=== PATIENT | male | born 1960 | race Caucasian/White ===

== ENCOUNTER 2020-02-23 17:35 | Observation (INO) ==
[2020-02-23] MEDS ORDERED: SODIUM CHLORIDE 0.9% 500 ML IV SCH (18:00)
[2020-02-23] MEDS ORDERED: NITROGLYCERIN SL 0.4 MG/TAB TAB SL STA (18:00)
[2020-02-23] MEDS ORDERED: ASPIRIN CHEW 324 MG PO STA (18:00)
--- NOTE | 2020-02-23 18:08 | Emergency Department Note ---
History of Present Illness General Chief complaint: Chest Pain Stated complaint: chest pain Time Seen by Provider: 02/23/20 17:45 Source: patient Limitations: no limitations History of Present Illness Provider complaint: Chest pain Onset (ago): hour(s) Location: chest and left Radiation: extremity (Left shoulder) Severity: mild Maximum Pain Intensity: 3 Current Pain Intensity: 3 Quality: + aching and + dull Relieved By: + none Exacerbated By: + none Associated symptoms: no cough, no diaphoresis, no fever/chills, no nausea/vomiting and no shortness of breath This is a 59-year-old male with a history of atrial fibrillation presenting with chest discomfort. The patient states the pain started at 3 PM today while he was operating. 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 He describes it as a dull ache on the left side of his chest which radiates into his left shoulder. Occasionally will radiate into the right side of his chest. He denies any associated shortness of breath or diaphoresis. He does state that he feels a little run down and tired. He has never had any similar chest discomfort in the past. He never smoked. He does have a family history of heart disease. His father had a heart attack around his age. His father also has anticardiolipin antibody and had numerous PEs and DVTs since his 20s. The patient has never been tested or had a hypercoagulable work-up. He denies any immobilization or leg swelling or pain. He denies any cough or cold symptoms, abdominal pain, vomiting or diarrhea. He denies any known exposure COVID-19. He was previously treated for high cholesterol but his process project engineer stopped his statin because of myalgias a month ago. They did recheck his cholesterol which was within normal limits. The patient did have a stress echocardiogram approximately 2 years ago. He had abdominal issues at that time and had a CT with IV contrast which demonstrated potential pulmonary hypertension and so the stress echocardiogram was performed. It was found that he did not have pulmonary hypertension at that time and his stress echocardiogram was negative for ischemia. Home Medications Home Medications Medication Instructions Recorded Confirmed Type aspirin 81 mg PO DAILY 06/17/18 02/23/20 History cetirizine 10 mg PO DAILY PRN 06/17/18 02/23/20 History diltiazem HCl 180 mg PO DAILY 06/17/18 02/23/20 History flecainide 50 mg PO DAILY 06/17/18 02/23/20 History Allergies Allergy/AdvReac Type Severity Reaction Status Date / Time meperidine Allergy HIVES Verified 02/23/20 18:42 Past Med/Surg History Medical History A-fib Surgical History Hx of appendectomy Hx of carpal tunnel repair Family History Other Cancer Diabetes Gallbladder disease Heart disease Hypertension Lung cancer Lung disease Social History Smoking Status: Never smoker Preferred Language: Serbian marital status: Current Living Situation: Family current occupational status: employed Feels Safe at Home: Yes Review of Systems See HPI for pertinent positives & negatives. and A total of 10 systems reviewed and were otherwise negative Physical Exam Vital Signs Vital Signs - 24 hr 02/23/20 17:41 02/23/20 18:25 02/23/20 18:30 Temperature 36.6 C Temperature Source Oral Pulse Rate 66 58 L 58 L Pulse Rate from SpO2 Sensor Pulse Rhythm Regular Pulse Strength Normal Respiratory Rate 18 18 18 Respiratory Effort / Characteristics Non-Labored Spontaneous Respiratory Depth Normal Respiratory Pattern Regular Blood Pressure 148/91 H 154/91 H 156/100 H Blood Pressure Mean 110 102 114 Blood Pressure Position Sitting Pulse Oximetry 98 Oxygen Delivery Method Room Air Sepsis Recent Fever Within 48 Hours No Sepsis New/Unexplained Change in Mental Status No Sepsis Action Taken by Nursing No Action Required 02/23/20 18:35 02/23/20 18:40 02/23/20 18:45 Temperature Temperature Source Pulse Rate 58 L 64 51 L Pulse Rate from SpO2 Sensor 64 51 L Pulse Rhythm Pulse Strength Respiratory Rate 18 18 18 Respiratory Effort / Characteristics Respiratory Depth Respiratory Pattern Blood Pressure 158/93 H 147/85 H 147/93 H Blood Pressure Mean 101 102 105 Blood Pressure Position Pulse Oximetry 95 96 Oxygen Delivery Method Sepsis Recent Fever Within 48 Hours Sepsis New/Unexplained Change in Mental Status Sepsis Action Taken by Nursing 02/23/20 18:50 02/23/20 18:52 02/23/20 18:55 Temperature Temperature Source Pulse Rate 56 L 49 L Pulse Rate from SpO2 Sensor 56 L 49 L Pulse Rhythm Pulse Strength Respiratory Rate 18 18 Respiratory Effort / Characteristics Respiratory Depth Respiratory Pattern Blood Pressure 151/90 H 150/89 H Blood Pressure Mean 111 114 Blood Pressure Position Pulse Oximetry 96 97 96 Oxygen Delivery Method Room Air Sepsis Recent Fever Within 48 Hours Sepsis New/Unexplained Change in Mental Status Sepsis Action Taken by Nursing 02/23/20 19:00 02/23/20 19:05 02/23/20 19:10 Temperature Temperature Source Pulse Rate 50 L 49 L 47 L Pulse Rate from SpO2 Sensor 50 L 50 L 47 L Pulse Rhythm Pulse Strength Respiratory Rate 18 18 18 Respiratory Effort / Characteristics Respiratory Depth Respiratory Pattern Blood Pressure 149/91 H 149/88 H 150/88 H Blood Pressure Mean 104 103 104 Blood Pressure Position Pulse Oximetry 96 96 96 Oxygen Delivery Method Sepsis Recent Fever Within 48 Hours Sepsis New/Unexplained Change in Mental Status Sepsis Action Taken by Nursing 02/23/20 19:15 02/23/20 19:20 02/23/20 19:35 Temperature Temperature Source Pulse Rate 52 L 54 L 46 L Pulse Rate from SpO2 Sensor 54 L 52 L 47 L Pulse Rhythm Pulse Strength Respiratory Rate 18 18 18 Respiratory Effort / Characteristics Respiratory Depth Respiratory Pattern Blood Pressure 142/88 H 170/93 H 168/97 H Blood Pressure Mean 112 108 115 Blood Pressure Position Pulse Oximetry 97 97 98 Oxygen Delivery Method Sepsis Recent Fever Within 48 Hours Sepsis New/Unexplained Change in Mental Status Sepsis Action Taken by Nursing 02/23/20 19:40 Temperature Temperature Source Pulse Rate 45 L Pulse Rate from SpO2 Sensor 47 L Pulse Rhythm Pulse Strength Respiratory Rate 18 Respiratory Effort / Characteristics Respiratory Depth Respiratory Pattern Blood Pressure 178/101 H Blood Pressure Mean 125 Blood Pressure Position Pulse Oximetry 97 Oxygen Delivery Method Sepsis Recent Fever Within 48 Hours Sepsis New/Unexplained Change in Mental Status Sepsis Action Taken by Nursing Constitutional: Vital signs reviewed. Eyes: Pupils are equal round reactive to light. Conjunctiva are noninjected. ENT: Pharynx is clear without erythema or exudate. Mucous membranes are moist. Neck supple without meningeal signs. Respiratory: Clear to auscultation bilaterally. Breath sounds are equal bilat erally. Cardiovascular: Regular rate and rhythm. No rubs or gallops. GI: Soft, nondistended and nontender. Bowel sounds are present. Musculoskeletal: No peripheral edema. No lower extremity tenderness. Integumentary: No cyanosis. or jaundice. Neurological: The patient is awake and alert. No focal deficits. Psychiatric: Normal affect. Not anxious appearing. Course Administered Medications Discontinued Medications Aspirin (Aspirin Chew 324 Mg) 324 mg PO NOW STA Stop: 02/23/20 18:01 Last Admin: 02/23/20 18:34 Dose: 324 mg Documented by: [id number] Sodium Chloride (Nss) 500 mls @ 999 mls/hr IV .Q31M NORTH Stop: 02/23/20 18:30 Last Infusion: 02/23/20 20:09 Dose: 0 mls/hr Documented by: [id number] Admin: 02/23/20 18:34 Dose: 999 mls/hr Documented by: [id number] Nitroglycerin (Nitroglycerin Sl 0.4 Mg/Tab Tab) 0.4 mg SL NOW STA Stop: 02/23/20 18:01 Last Admin: 02/23/20 18:34 Dose: 0.4 mg Documented by: [id number] Medical Decision Making Differential Diagnosis Unstable angina, MS, pleurisy, pneumonia, pulmonary embolism, GERD Medical Records Attestation: I reviewed the patient's medical records. I did perform a limited focused review of portions of the patient's old chart on the electronic medical record. The patient has had no recent pertinent visits to this hospital. He was seen here for abdominal pain in 2018. Home Medications Current Medication List: was personally reviewed by me Laboratory Data Attestation: I reviewed the patient's lab results. Result diagrams: 02/23/20 18:31 02/23/20 18:31 Lab Results 02/23/20 02/23/20 02/23/20 Range/Units 18:31 18:31 18:31 WBC 11.27 H (4.8-10.8) K/uL RBC 4.88 (4.7-6.1) M/uL Hgb 15.6 (14.0-18.0) g/dL Hct 43.7 (42-52) % MCV 89.5 (80-100) fL MCH 32.0 (25-34) pg MCHC 35.7 (32-36) g/dL RDW Std Deviation 42.3 (36.4-46.3) fL RDW Coeff of Nichole 12.9 (11.5-14.5) % Plt Count 258 (130-400) K/uL MPV 10.0 (7.4-10.4) fL Immature Gran % (Auto) 0.1 % Neut % (Auto) 65.3 % Lymph % (Auto) 26.9 % [place] % (Auto) 6.2 % Eos % (Auto) 1.4 % Baso % (Auto) 0.1 % Neut # (Auto) 7.36 H (1.4-6.5) K/uL Lymph # (Auto) 3.03 (1.2-3.4) K/uL [place] # (Auto) 0.70 H (0.11-0.59) K/uL Eos # (Auto) 0.16 (0-0.5) K/uL Baso # (Auto) 0.01 (0-0.2) K/uL Immature Gran # (Auto) 0.01 (0.00-0.02) K/uL PT 10.9 (9.0-12.0) Seconds INR 1.0 (0.9-1.1) APTT 25.6 (21.0-31.0) Seconds PTT Ratio 0.9 D-Dimer 490 (0-500) ug/L FEU Sodium 138 (136-145) mmol/L Potassium 3.7 (3.5-5.1) mmol/L Chloride 106 (98-107) mmol/L Carbon Dioxide 27 (21-32) mmol/L Anion Gap 6.0 (3-11) BUN 17 (7-18) mg/dl Creatinine 1.18 (0.6-1.4) mg/dl Est Cr Clr Drug Dosing 98.3 ml/min Est GFR ( Amer) 78.4 Est GFR (Non-Af Amer) 67.6 BUN/Creatinine Ratio 14.3 (10-20) Glucose 97 (70-99) mg/dl Calcium 8.9 (8.5-10.1) mg/dl Total Bilirubin 0.4 (0.2-1) mg/dl AST 16 (15-37) U/L ALT 28 (12-78) U/L Alkaline Phosphatase 60 (45-117) U/L Troponin I < 0.015 (0-0.045) ng/ml Total Protein 7.6 (6.4-8.2) gm/dl Albumin 3.8 (3.4-5.0) gm/dl Globulin 3.8 (2.5-4.0) gm/dl Albumin/Globulin Ratio 1.0 (0.9-2) Lipase 117 (73-393) U/L Imaging Data Radiologist's Impression: XR chest 1V portable CLINICAL HISTORY: Atypical chest pain COMPARISON STUDY: 06/17/2018 FINDINGS: The cardiac and mediastinal contours are normal. There is no evidence of focal pulmonary consolidation. There is no evidence of failure. No pleural effusions are visualized.[ IMPRESSION: No active disease in the chest. ACT 112: Negative or not required by law. Electronically signed by: Aj Odom M.D. 02/23/2020 6:11 PM Dictated: 02/23/201810 Transcribed: 02/23/201810 ECG Data Attestation: I personally reviewed and interpreted this ECG as follows: Indication: + chest pain Rate (beats per minute): 62 Rhythm: + normal sinus ECG Intervals/blocks: + Normal QRS ECG ST segments: no ST elevation ECG Findings: no PVCs Comparison ECG Date: from (June 17, 2018) Change: no significant change Blood Pressure Blood Pressure Findings: Elevated blood pressure Blood Pressure Disposition: Referred to patients primary care provider [facility] Narrative I did evaluate the patient as noted above. IV access was established. He was given normal saline IV. I did place an order for continuous cardiac monitoring. The monitor showed normal sinus rhythm at a rate of 60 but during his ED stay he became progressively more bradycardic with a heart rate down to the high 40s. I did order and personally review the patient's 12-lead EKG as described above. He has no acute ischemic changes. I did treat him with aspirin p.o. He was also given nitroglycerin sublingually. I did order and personally reviewed the images of the patient's chest x-ray as described above. Chest x-ray is unremarkable. I did order and review the patient's blood work as noted in the electronic medical record. Initial troponin is negative. He has mild le ukocytosis which is of unclear clinical significance. He is not anemic. Electrolytes are unremarkable. I did reassess patient. He is now bradycardic but still hypertensive. He no longer has any chest pain. He does state that it comes and goes but he is currently not having any. I did review his test results with him as well as his . He has a heart score of 4 and so is not a good candidate for the heart pathway. I therefore recommended hospitalization for repeat cardiac biomarkers and possible stress test in the morning. I did discuss case with the hospitalist and oil field caser. Impression & Plan Chest pain, Bradycardia Discharge Plan Visit Data Chief Complaint: Chest Pain Stated Complaint: chest pain ED Provider: Nicholas Escalante Discharge Problem: Chest pain, Bradycardia Patient Disposition: Being Evaluated by Hospitalist Discharge Instructions Interventions: ED Discharge Assessment Last Done: 02/23/20 20:39 Discharge Problem: Chest pain Qualifiers: Chest pain type: unspecified Qualified Code(s): R07.9 - Chest pain, unspecified
--- NOTE | 2020-02-23 18:12 | XRay Report ---
XR chest 1V portable CLINICAL HISTORY: Atypical chest pain COMPARISON STUDY: 06/17/2018 FINDINGS: The cardiac and mediastinal contours are normal. There is no evidence of focal pulmonary co nsolidation. There is no evidence of failure. No pleural effusions are visualized.[ IMPRESSION: No active disease in the chest. ACT 112: Negative or not required by law. Electronically signed by: Aj Odom M.D. 02/23/2020 6:11 PM
[2020-02-23 18:43] LABS: Basophils # (auto) 0.01 K/uL (0-0.2); Basophils % (auto) 0.1 %; Eosinophils # (auto) 0.16 K/uL (0-0.5); Eosinophils % (auto) 1.4 %; Hematocrit (blood only) 43.7 % (42-52); Hemoglobin 15.6 g/dL (14.0-18.0); Immature Granulocytes # (auto) 0.01 K/uL (0.00-0.02); Immature Granulocytes % (auto) 0.1 %; Lymphocytes # (auto) 3.03 K/uL (1.2-3.4); Lymphocytes % (auto) 26.9 %; Mean Corpuscular Hgb Conc 35.7 g/dL (32-36); Mean Corpuscular Volume 89.5 fL (80-100); Monocytes % (auto) 6.2 %; Neutrophils # (auto) 7.36 K/uL (1.4-6.5); Neutrophils % (auto) 65.3 %; Platelet Count 258 K/uL (130-400); RDW Coefficient of Variation 12.9 % (11.5-14.5); RDW Standard Deviation 42.3 fL (36.4-46.3); Red Blood Count 4.88 M/uL (4.7-6.1); White Blood Count 11.27 K/uL (4.8-10.8)
[2020-02-23 18:56] LABS: D Dimer 490 ug/L FEU (0-500); Partial Thromboplastin Ratio 0.9; Partial Thromboplastin Time 25.6 Seconds (21.0-31.0); Prothrombin Time 10.9 Seconds (9.0-12.0)
[2020-02-23 18:59] LABS: Alanine Aminotransferase 28 U/L (12-78); Albumin Level 3.8 gm/dl (3.4-5.0); Aspartate Aminotransferase 16 U/L (15-37); BUN Creatinine Ratio 14.3 (10-20); Blood Urea Nitrogen 17 mg/dl (7-18); Calcium 8.9 mg/dl (8.5-10.1); Carbon Dioxide 27 mmol/L (21-32); Chloride 106 mmol/L (98-107); Creatinine Clr Calc Pharmacy 98.3 ml/min; Est GFR (African American) 78.4; Est GFR (Non-African American) 67.6; Glucose 97 mg/dl (70-99); Lipase 117 U/L (73-393); Potassium 3.7 mmol/L (3.5-5.1); Sodium 138 mmol/L (136-145)
[2020-02-23 19:04] LABS: Alkaline Phosphatase 60 U/L (45-117); Bilirubin,Total 0.4 mg/dl (0.2-1); Globulin 3.8 gm/dl (2.5-4.0); Total Protein 7.6 gm/dl (6.4-8.2); Troponin I < 0.015 ng/ml (0-0.045)
[2020-02-23] MEDS ORDERED: CETIRIZINE HCL 10 MG TABLET PO PRN (21:05)
[2020-02-23] MEDS ORDERED: ACETAMINOPHEN 325 MG TAB PO PRN (21:05)
[2020-02-23] MEDS ORDERED: NITROGLYCERIN SL 0.4 MG/TAB TAB SL PRN (21:05)
--- NOTE | 2020-02-23 23:07 | History and Physical Report ---
DATE OF ADMISSION: 02/23/2020 CHIEF COMPLAINT: Chest pain. 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 when he noticed chest pain in the left side of his chest, dull aching pain, 6/10 in severity, radiating to the left shoulder and he was also feeling fatigued. He was finding it difficult to get up from the chair and move. This fatigueness is going on for the last 2-3 months, but he did not have any chest pain, this is the first time he had chest pain. In the ER, he was given nitroglycerin and initially pain seemed to improve, but seemed to be coming back again. No shortness of breath, no sweating, no nausea, no dizziness. Has tinnitus in the right ear for the last 3 years. Follows with ENT. No obvious etiology was found. No headache, no blurred visions, no earache, no runny nose, no sore throat. No sense of loss of smell or taste. No exposure to COVID. No nausea, no vomiting, no abdominal pain. Normal bowel and bladder movements. No blood in stools or black stools. He says that he noticed lately some swelling in his right ankle region. No rash seen. He also says lately climbing steps is making him short of breath and attributes it to his overall not being fit. Also feels that he is feeling foggy for the last few months. Currently, he is hemodynamically stable. Initial troponin and EKGs are okay. Could not tolerate atorvastatin with myalgias but recent lipid profile was okay. ALLERGIES: ATORVASTATIN, CAUSED MUSCLE PAIN; MEPERIDINE, UNRELATED. PAST MEDICAL HISTORY: As mentioned above. PAST SURGICAL HISTORY: Colonoscopy, appendectomy, wrist endoscopic surgery, release transverse carpal ligament. MEDICATIONS: On flecainide 50 mg p.o. b.i.d., diltiazem 180 mg p.o. daily, enteric aspirin 81 mg p.o. daily, Zyrtec 10 mg p.o. daily p.r.n. FAMILY HISTORY: Significant for father had anticardiolipin antibody diagnosed in his 50s, but he had numerous PEs and DVTs since his 20s, has been on lifelong Coumadin. SOCIAL HISTORY: . No smoking. Alcohol rare. No drug use. REVIEW OF SYSTEMS: As per HPI. Rest of the review of symptoms negative. PHYSICAL EXAMINATION: GENERAL: The patient is alert and oriented, not in acute distress. VITAL SIGNS: Temperature 36.6, pulse in the 50s and 40s, blood pressure 178/101, oxygen 97% on room air. HEENT: No pallor, no icterus. Pupils equal, round, reactive to light. NECK: No JVD, no neck masses. Supple. CARDIOVASCULAR: S1, S2 heard, regular rate and rhythm, no murmur, no gallop. RESPIRATORY SYSTEM: Normal AP diameter. No accessory muscle use. No wheezing, no crackles. ABDOMEN: Soft, bowel sounds present, nontender. No distention. CENTRAL NERVOUS SYSTEM: Alert and oriented. Speech clear. Extraocular muscles intact. Moves extremities. EXTREMITIES: No edema, no erythema seen. LABORATORY DATA: WBC 11.2, hemoglobin 15.6, hematocrit 43.7, platelets 258. PT 10.9, INR 1, APTT 25.6. D-dimer 490. Sodium 138, potassium 3.7, chloride 106, bicarbonate 27, BUN 17, creatinine 1.1, serum glucose 97, calcium 8.9, total bilirubin 0.4, AST 16, ALT 28, alkaline phosphatase 60, troponin I less than 0.015. Lipase 117. IMAGING DATA: Chest x-ray, no acute findings. EKG: Normal sinus rhythm with a rate of 62, no acute ST changes seen, no significant change was found. ASSESSMENT AND PLAN: This is a 59-year-old male who presents with chest pain. 1. Chest pain, rule out acute coronary syndrome. Risk factor of age, atrial fibrillation, obesity, sleep apnea. Initial workup is negative. We will follow serial enzymes, repeat EKG in the a.m., echocardiogram. Will keep n.p.o. after midnight and consult cardiology for further recommendation. We will check fasting lipid profile. 2. History of atrial fibrillation, rate controlled with flecainide and diltiazem, on aspirin. 3. Obstructive sleep apnea, on CPAP at bedtime. 4. Grade 2 diastolic dysfunction with normal LV systolic function on the echo done in 2018. We will follow the repeat echo. 5. Hyperlipidemia, not on statin because could not tolerate atorvastatin. We will follow the lipid profile. 6. Ongoing fatigue, fogginess. Will check TSH levels. Somewhat bradycardic in the ER, possible cause? We will also monitor the oxygen saturations while on CPAP and monitor in the tele floor. 7. Deep vein thrombosis prophylaxis, sequential compression devices for now. 8. Disposition: Observe in tele floor. Level 1 full code. Expect to discharge home and follow with the family doctor and cardiology. ANDREI
[2020-02-24 06:20] LABS: Basophils # (auto) 0.03 K/uL (0-0.2); Basophils % (auto) 0.3 %; Eosinophils # (auto) 0.17 K/uL (0-0.5); Eosinophils % (auto) 1.9 %; Hematocrit (blood only) 43.2 % (42-52); Hemoglobin 15.1 g/dL (14.0-18.0); Immature Granulocytes # (auto) 0.03 K/uL (0.00-0.02); Immature Granulocytes % (auto) 0.3 %; Lymphocytes # (auto) 2.36 K/uL (1.2-3.4); Lymphocytes % (auto) 26.4 %; Mean Corpuscular Hemoglobin 31.4 pg (25-34); Mean Corpuscular Volume 89.8 fL (80-100); Mean Platelet Volume 9.9 fL (7.4-10.4); Monocytes # (auto) 0.64 K/uL (0.11-0.59); Monocytes % (auto) 7.2 %; Neutrophils % (auto) 63.9 %; Platelet Count 247 K/uL (130-400); RDW Standard Deviation 42.4 fL (36.4-46.3); Red Blood Count 4.81 M/uL (4.7-6.1); White Blood Count 8.93 K/uL (4.8-10.8)
[2020-02-24 06:47] LABS: BUN Creatinine Ratio 15.9 (10-20); Blood Urea Nitrogen 16 mg/dl (7-18); Calcium 8.3 mg/dl (8.5-10.1); Carbon Dioxide 27 mmol/L (21-32); Chloride 110 mmol/L (98-107); Creatinine Clr Calc Pharmacy 112.7 ml/min; Est GFR (African American) 92.4; Est GFR (Non-African American) 79.7; Glucose 99 mg/dl (70-99); Magnesium 2.2 mg/dl (1.8-2.4); Sodium 141 mmol/L (136-145)
[2020-02-24 06:53] LABS: Chol HDL Ratio 6; Cholesterol 176 mg/dl (0-200); HDL Cholesterol 30 mg/dl; LDL Cholesterol Calculated 113 mg/dl; Triglycerides 163 mg/dl (0-150); Troponin I < 0.015 ng/ml (0-0.045); VLDL Cholesterol 33 mg/dl
[2020-02-24] MEDS ORDERED: PNEUMOCOCCAL Polysaccharide Vaccine 25mcg/0.5mL vial/Syr IM ONE (08:00)
--- NOTE | 2020-02-24 08:01 | Cardiology Consultation ---
Date of Consultation February 24, 2020 Assessment & Plan (1) Unstable angina: (2) Abnormal echocardiogram: (3) PAF (paroxysmal atrial fibrillation): (4) AN on CPAP: (5) Dyslipidemia: (6) Statin intolerance: Dr. Mendiola's presentation is rather classical for unstable angina. While his EKG and troponin levels are unremarkable there is a significant wall motion abnormality on his echocardiogram to suggest disease of the LAD system. He is still having some slight chest discomfort so he will be given sublingual nitroglycerin times now and be taken to the cardiac catheterization laboratory now. No beta-blockers have been started due to his resting bradycardia No statin was given due to his history of intolerance He is already on aspirin and that has been continued. This plan was discussed with Dr. Mendiola along with Mrs. Mendiola and he is in agreement. History of Present Illness Reason for Consultation: chest pain Requesting Physician: Dr. Sin Attending Physician: Omkar Langford MD History of Present Illness Dr. Mendiola is a very pleasant 59-year-old gentleman who presented to the emergency department in the evening of 02/23/2020 with complaints of chest pain. I have seen him as an outpatient in the past for paroxysmal atrial fibrillation. He states that for the last 3 months or so he is just not felt well. He states he feels tired and fatigued. 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 He described it as a dull achy/pressure sensation in his left midclavicular line. He denied any associated symptoms with it and was able to finish the operation. The discomfort persisted for the rest of the evening and upon his 's recommendations he came into the emergency department. Initial work-up was unremarkable with no ischemic changes to his EKG and normal troponins. His discomfort persisted throughout the night and may have improved somewhat with sublingual nitro but not completely. He is never had any previous similar episodes. He denies any recent trauma to his chest. He does note that he has a history of shoulder issues. Allergies Allergy/AdvReac Type Severity Reaction Status Date / Time meperidine Allergy HIVES Verified 02/23/20 18:42 Home Medications Home Medications Medication Instructions Recorded Confirmed Type aspirin 81 mg PO DAILY 06/17/18 02/23/20 History cetirizine 10 mg PO DAILY PRN 06/17/18 02/23/20 History diltiazem HCl 180 mg PO DAILY 06/17/18 02/23/20 History flecainide 50 mg PO DAILY 06/17/18 02/23/20 History Patient History Medical History A-fib Surgical History Hx of appendectomy Hx of carpal tunnel repair Family History Other Cancer Diabetes Gallbladder disease Heart disease Hypertension Lung cancer Lung disease Social History Smoking Status: Never smoker Hx Alcohol Use: Yes Alcohol type: beer, wine and hard liquor Hx Substance Use: No Preferred Language: Danish Sales Account Leader Required: No Beliefs That Will Affect Care: None marital status: Current Living Situation: Spouse and Family current occupational status: employed Other Information That Helps Us Care for You: No Feels Safe at Home: Yes Safety Concerns: Feels Safe At This Time Review of Systems Review of Systems: All systems reviewed & are unremarkable except as noted in HPI & below Physical Exam Physical Exam: Physical Exam: General: Awake, alert and oriented x 3. No acute distress. HEENT: Normocephalic, atraumatic. Pupils equal, round and reactive to light and accommodation. Extraocular muscles are intact. Anicteric sclera. Moist mucous membranes. Neck: No JVD. No bruit. Cardiovascular: Regular. No S-4. Normal S-1 and S-2. No S-3. No murmurs, rubs or gallops. Pulmonary: Clear to auscultation bilaterally. No rales, rhonchi, or wheezing. Abdomen: Bowel sounds x 4, soft. No rebound, guarding or tenderness. No organomegaly. Extremities: No clubbing, cyanosis or edema. +2 pedal pulses bilaterally. Skin: Warm and dry. Musculoskeletal: Direct palpation of his left third intercostal space midclavicular line was able to worsen the discomfort. No pain in the shoulder and pain not reproduced by direct palpation of the rotator cuff. Results & Data ([facility]) Vital Signs (Past 12 Hours) Vital Signs Temp Pulse Pulse Resp BP BP Pulse Ox 02/24/20 07:30 48 L 02/24/20 07:07 36.5 C 53 L 20 151/80 H 96 02/24/20 03:54 36.5 C 51 L 19 123/76 95 02/23/20 23:21 36.5 C 50 L 19 135/83 95 02/23/20 23:19 49 L 02/23/20 21:05 36.5 C 53 L 16 163/96 H 97 02/23/20 21:00 36.5 C 47 L 53 L 16 163/96 H 97 02/23/20 20:30 47 L 18 169/103 H 98 Laboratory Results Laboratory Results - last 24 hr 02/23/20 02/23/20 02/23/20 18:31 18:31 18:31 WBC 11.27 H RBC 4.88 Hgb 15.6 Hct 43.7 MCV 89.5 MCH 32.0 MCHC 35.7 RDW Std Deviation 42.3 RDW Coeff of Nichole 12.9 Plt Count 258 MPV 10.0 Immature Gran % (Auto) 0.1 Neut % (Auto) 65.3 Lymph % (Auto) 26.9 [place] % (Auto) 6.2 Eos % (Auto) 1.4 Baso % (Auto) 0.1 Neut # (Auto) 7.36 H Lymph # (Auto) 3.03 [place] # (Auto) 0.70 H Eos # (Auto) 0.16 Baso # (Auto) 0.01 Immature Gran # (Auto) 0.01 PT 10.9 INR 1.0 APTT 25.6 PTT Ratio 0.9 D-Dimer 490 Sodium 138 Potassium 3.7 Chloride 106 Carbon Dioxide 27 Anion Gap 6.0 BUN 17 Creatinine 1.18 Est Cr Clr Drug Dosing 98.3 Est GFR ( Amer) 78.4 Est GFR (Non-Af Amer) 67.6 BUN/Creatinine Ratio 14.3 Glucose 97 Calcium 8.9 Magnesium Total Bilirubin 0.4 AST 16 ALT 28 Alkaline Phosphatase 60 Troponin I < 0.015 Total Protein 7.6 Albumin 3.8 Globulin 3.8 Albumin/Globulin Ratio 1.0 Triglycerides Cholesterol LDL Cholesterol, Calc VLDL Cholesterol, Calc HDL Cholesterol Cholesterol/HDL Ratio Lipase 117 TSH 02/23/20 02/24/20 02/24/20 22:25 06:07 06:07 WBC 8.93 RBC 4.81 Hgb 15.1 Hct 43.2 MCV 89.8 MCH 31.4 MCHC 35.0 RDW Std Deviation 42.4 RDW Coeff of Nichole 13.0 Plt Count 247 MPV 9.9 Immature Gran % (Auto) 0.3 Neut % (Auto) 63.9 Lymph % (Auto) 26.4 [place] % (Auto) 7.2 Eos % (Auto) 1.9 Baso % (Auto) 0.3 Neut # (Auto) 5.70 Lymph # (Auto) 2.36 [place] # (Auto) 0.64 H Eos # (Auto) 0.17 Baso # (Auto) 0.03 Immature Gran # (Auto) 0.03 H PT INR APTT PTT Ratio D-Dimer Sodium 141 Potassium 4.0 Chloride 110 H Carbon Dioxide 27 Anion Gap 4.0 BUN 16 Creatinine 1.03 Est Cr Clr Drug Dosing 112.7 Est GFR ( Amer) 92.4 Est GFR (Non-Af Amer) 79.7 BUN/Creatinine Ratio 15.9 Glucose 99 Calcium 8.3 L Magnesium 2.2 Total Bilirubin AST ALT Alkaline Phosphatase Troponin I < 0.015 < 0.015 Total Protein Albumin Globulin Albumin/Globulin Ratio Triglycerides 163 H Cholesterol 176 LDL Cholesterol, Calc 113 VLDL Cholesterol, Calc 33 HDL Cholesterol 30 Cholesterol/HDL Ratio 6 Lipase TSH 02/24/20 02/24/20 06:07 10:49 WBC RBC Hgb Hct MCV MCH MCHC RDW Std Deviation RDW Coeff of Nichole Plt Count MPV Immature Gran % (Auto) Neut % (Auto) Lymph % (Auto) [place] % (Auto) Eos % (Auto) Baso % (Auto) Neut # (Auto) Lymph # (Auto) [place] # (Auto) Eos # (Auto) Baso # (Auto) Immature Gran # (Auto) PT INR APTT PTT Ratio D-Dimer Sodium Potassium Chloride Carbon Dioxide Anion Gap BUN Creatinine Est Cr Clr Drug Dosing Est GFR ( Amer) Est GFR (Non-Af Amer) BUN/Creatinine Ratio Glucose Calcium Magnesium Total Bilirubin AST ALT Alkaline Phosphatase Troponin I Pending Total Protein Albumin Globulin Albumin/Globulin Ratio Triglycerides Cholesterol LDL Cholesterol, Calc VLDL Cholesterol, Calc HDL Cholesterol Cholesterol/HDL Ratio Lipase TSH 1.900 Medications Administered Current Inpatient Medications Acetaminophen (Acetaminophen 325 Mg Tab) 650 mg PO Q4H PRN PRN Reason: Pain or Fever Stop: 03/24/20 21:04 Aspirin (Aspirin 81 Mg Ectab) 81 mg PO DAILY [facility] Stop: 03/25/20 08:59 Last Admin: 02/24/20 08:45 Dose: 81 mg Documented by: Cetirizine HCl (Cetirizine Hcl 10 Mg Tablet) 10 mg PO DAILY PRN PRN Reason: Allergy Symptoms Stop: 03/24/20 21:04 Diltiazem HCl (Diltiazem Hcl 180 Mg Capcr) 180 mg PO DAILY [facility] Stop: 03/25/20 08:59 Last Admin: 02/24/20 08:45 Dose: 180 mg Documented by: Flecainide Acetate (Flecainide Acetate 100 Mg Tablet) 50 mg PO DAILY [facility] Stop: 03/25/20 08:59 Last Admin: 02/24/20 08:46 Dose: 50 mg Documented by: Sodium Chloride (Nss 1000ml) 1,000 mls @ 131 mls/hr IV .[id number] [facility] Stop: 03/25/20 08:14 Last Admin: 02/24/20 08:47 Dose: 131 mls/hr Documented by: Nitroglycerin (Nitroglycerin Sl 0.4 Mg/Tab Tab) 0.4 mg SL UD PRN PRN Reason: Chest Pain Stop: 03/24/20 21:04 Last Admin: 02/24/20 08:02 Dose: 0.4 mg Documented by:
--- NOTE | 2020-02-24 08:14 | Communication Note ---
Date of Service: February 24, 2020 I have reviewed the chart, seen the patient and examined him. I explained the risk benefit and intent of the cardiac catheterization including the potential for catheter-based intervention. He is willing to proceed and the study will be completed this morning.
[2020-02-24] MEDS ORDERED: SODIUM CHLORIDE 0.9% 1000ML 1,000 ML IV SCH (08:15)
--- NOTE | 2020-02-24 08:37 | Electrocardiogram Report ---
Test Reason : Blood Pressure : / mmHG Vent. Rate : 062 BPM Atrial Rate : 062 BPM P-R Int : 146 ms QRS Dur : 106 ms QT Int : 400 ms P-R-T Axes : 065 -03 029 degrees QTc Int : 406 ms Normal sinus rhythm Normal ECG When compared with ECG of 17-JUN-2018 03:28, No significant change was found Confirmed by Caleb Hodgson ([id number]) on 02/24/2020 8:37:10 AM Referred By: REFERRED SELF Confirmed By:Caleb Hodgson
--- NOTE | 2020-02-24 08:41 | Hospitalist Progress Note ---
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 when he noticed chest pain in the left side of his chest, dull aching pain, 6/10 in severity, radiating to the left shoulder and he was also feeling fatigued. He was finding it difficult to get up from the chair and move. This fatigueness is going on for the last 2-3 months, but he did not have any chest pain, this is the first time he had chest pain. In the ER, he was given nitroglycerin and initially pain seemed to improve, but seemed to be coming back again. No shortness of breath, no sweating, no nausea, no dizziness." -as per cardiology initial evaluation: "While his EKG and troponin levels are unremarkable there is a significant wall motion abnormality on his echocardiogram to suggest disease of the LAD system. He is still having some slight chest discomfort so he will be given sublingual nitroglycerin times now and be taken to the cardiac catheterization laboratory now. No beta-blockers have been started due to his resting bradycardia No statin was given due to his history of intolerance He is already on aspirin and that has been continued. 02/24/2020 AM updates: Patient seen and examined in the AM. He is not in acute distress and he is awaiting cardiac catheterization as per cardiology service. Patient with bradycardia. seems chronic and patient has been on cardiovascular medications with heart rate and rhythm. Overnight the telemetry with bradycardia recorded as low as 38 bpm, however patient not complaining of any problems with sleep. he does not feel shortness of breath. he denies other symptoms -further management depending on results of cardiac cath -normal TSH Admission and Anticipated Discharge Date Admission Date: February 23, 2020 Subjective Patient seen and examined in the AM. He is not in acute distress and he is awaiting cardiac catheterization as per cardiology service. Patient with bradycardia. seems chronic and patient has been on cardiovascular medications with heart rate and rhythm. Overnight the telemetry with bradycardia recorded as low as 38 bpm, however patient not complaining of any problems with sleep. he does not feel shortness of breath. he denies other symptoms Review of Systems Review of Systems: All systems reviewed & are unremarkable except as noted in Subjective Physical Exam Constitutional: cooperative and comfortable Eyes: EOM intact bilaterally ENMT: external ear and nose normal, oropharynx normal Neck: normal visual inspection Respiratory: normal respiratory effort, lungs clear to auscultation Cardiovascular: Rate/Rhythm: regular rhythm and + bradycardic Gastrointestinal (Abdomen): Inspection/Auscultation: normal bowel sounds Percussion/Palpation: abdomen soft Musculoskeletal: Head/Neck/Chest: normocephalic and head atraumatic Neurologic: PERRL, EOMI, accommodation nl, no face palsy, no dysarthria moves all extremities Psychiatric: A+Ox3, euthymic affect Results & Data Results & Data ([facility]) Vital Signs (Past 12 Hours) Vital Signs Temp Pulse Pulse Resp BP Pulse Ox 02/24/20 08:09 64 18 134/74 97 02/24/20 08:01 59 L 20 139/73 97 02/24/20 07:56 66 18 134/96 96 02/24/20 07:51 58 L 18 137/85 96 02/24/20 07:30 48 L 02/24/20 07:07 36.5 C 53 L 20 151/80 H 96 02/24/20 03:54 36.5 C 51 L 19 123/76 95 02/23/20 23:21 36.5 C 50 L 19 135/83 95 02/23/20 23:19 49 L 02/23/20 21:05 36.5 C 53 L 16 163/96 H 97 02/23/20 21:00 36.5 C 47 L 53 L 16 163/96 H 97 (1) Chest pain Chest pain type: unspecified Qualified Code(s): R07.9 - Chest pain, unspecified
[2020-02-24] MEDS ORDERED: dilTIAZem ER 180 MG CAPCR PO SCH (09:00)
[2020-02-24] MEDS ORDERED: ASPIRIN 81 MG ECTAB PO SCH (09:00)
[2020-02-24] MEDS ORDERED: dilTIAZem HCL 180 MG CAPCR PO SCH (09:00)
[2020-02-24] MEDS ORDERED: FLECAINIDE ACETATE 100 MG TABLET PO SCH (09:00)
--- NOTE | 2020-02-24 09:05 | Electrocardiogram Report ---
Test Reason : Blood Pressure : / mmHG Vent. Rate : 058 BPM Atrial Rate : 058 BPM P-R Int : 148 ms QRS Dur : 100 ms QT Int : 430 ms P-R-T Axes : 062 030 043 degrees QTc Int : 422 ms Sinus bradycardia Otherwise normal ECG When compared with ECG of 23-FEB-2020 17:41, No significant change was found Confirmed by Caleb Hodgson ([id number]) on 02/24/2020 9:05:02 AM Referred By: REFERRED SELF Confirmed By:Caleb Hodgson
[2020-02-24] MEDS ORDERED: NITROGLYCERIN/D5W 100MCG/ML 20ML SYR ONE (09:26)
[2020-02-24] MEDS ORDERED: MIDAZOLAM HCL 1 MG/ML 2ML VIAL ONE (09:26)
[2020-02-24] MEDS ORDERED: NiCARDipine HCL INJ 2.5 MG/ML 10 ML AMP ONE (09:26)
[2020-02-24] MEDS ORDERED: HEPARIN (PORCINE) 1000 UNIT/ML 10 ML (CATH LAB USE ONLY) ONE (09:26)
[2020-02-24] MEDS ORDERED: fentaNYL citrate 100 MCG/2 ML VIAL ONE (09:26)
--- NOTE | 2020-02-24 10:19 | Cardiac Catheterization ---
Date of Service February 24, 2020 Cardiac Cath Report Cardiac Cath Report Selective injections of the left coronary artery revealed the left main trunk to be widely patent.the left circumflex artery consist mainly of a medium first marginal and a small second marginal branch the left circumflex procedure: 1. Coronary angiography History: This is a 59-year-old male patient with a history of paroxysmal atrial fibrillation, dyslipidemia and obstructive sleep apnea. He was admitted with chest discomfort. Cardiac markers were negative and his EKGs were normal however, he had a wall motion abnormality on a resting echocardiogram suggesting possible coronary artery disease. Procedure summary: We reviewed the options with the patient regarding access site, femoral artery versus radial artery. 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 A Barbeau maneuver was performed which showed adequate blood flow to the right hand. The patient requested a right radial approach. After informed consent was obtained the patient was prepped and draped in the usual manner. Access was obtained using a retrograde Salinger technique from the right radial artery. Preformed 5 Palestinian catheters were utilized for the coronary angiograms. Following the procedure the patient was returned to his room in stable condition after the arterial sheath was removed and a hemo-band placed. ACC data: Start time 9:55 AM End time 10:08 AM Opening aortic pressure 136/73 Closing aortic pressure 123/70 LV pressurevalve not crossed Sedation 1 mg intravenous Versed IV fluid 27 cc normal saline Contrast 70 cc Optiray Fluoroscopy time 2.3 minutes Radiation 1147 mGy DAP 107.38 cGy/m Right dominant system AUC score 7 Coronary angiography: Selective injections of the left coronary artery reveal the left main trunk to be patent. The left circumflex artery consists mainly of a medium size first marginal and a small second marginal branch. The left circumflex system is widely patent. The LAD trifurcates into 2 large diagonal branches in the main LAD which extends to the apex of the heart. The LAD system is widely patent. Injections into the right coronary artery revealed to be hyperdominant. The right coronary system is widely patent. Summary: The patient has widely patent coronary anatomy. Recommendations: Continued risk factor modification.
--- NOTE | 2020-02-24 13:04 | XRay Report ---
XR shoulder LT min 2V routine CLINICAL HISTORY: Left shoulder pain COMPARISON: None. DISCUSSION: No fractures or dislocations are visualized. Degenerative changes are present within the AC joint. IMPRESSION: 1. No acute fractures 2. Degenerative changes within the left AC joint ACT 112: Negative or not required by law. Electronically signed by: Aj Odom M.D. 02/24/2020 1:03 PM
--- NOTE | 2020-02-24 13:06 | XRay Report ---
TWO VIEW CHEST CLINICAL HISTORY: Atypical chest pain. FINDINGS: PA and lateral chest radiographs are compared to study dated 02/23/2020 and correlated with chest CT dated 06/17/2018. The cardiomediastinal silhouette is unremarkable. Prominence of the centra l pulmonary vessels is similar to previous and could be seen in the setting of pulmonary artery hyper tension. The lungs and pleural spaces are clear. There is no pneumothorax. The bony thorax appears in tact. Mild degenerative change is noted in the right shoulder. IMPRESSION: No active disease in the chest. ACT 112: Negative or not required by law. Electronically signed by: Erick Cuevas M.D. 02/24/2020 1:04 PM
--- NOTE | 2020-02-24 13:16 | Orthopedic Consultation ---
Date of Consultation February 24, 2020 Assessment & Plan (1) Unstable angina: I think his chest pain was coming from his angina. It was mostly anterior wall chest pain that was referred to his left shoulder. Does not seem to have too much left shoulder pain. On physical examination he has good motion good strength with his left shoulder. Repeat x-rays of the left shoulder were essentially negative. He can follow-up with me in the office at any time. He is probably more likely to see me for his right shoulder than his left with a possible right rotator cuff tear. He is orthopedically stable for discharge when medically ready. Present on Admission?: Yes History of Present Illness Reason for Consultation: Left shoulder pain Attending Physician: Omkar Langford MD History of Present Illness [place] is a pleasant 59-year-old male who began having left shoulder pain late yesterday. He came to [facility] where lab work for cardiac event was initially negative. He then had an echo which did not show any signs of an infarct. He then had a coronary catheterization which was negative. The pain was mostly in his left chest region. He is also having a little bit of shoulder pain. On the chest x-ray there was a concern about his shoulder region so ortho pedics was consulted to evaluate and treat. He denies any history of left shoulder pain. He states not having too much shoulder pain at this time. He does have a history of right shoulder pain with a possible rotator cuff tear. Allergies Allergy/AdvReac Type Severity Reaction Status Date / Time meperidine Allergy HIVES Verified 02/23/20 18:42 Home Medications Home Medications Medication Instructions Recorded Confirmed Type aspirin 81 mg PO DAILY 06/17/18 02/23/20 History cetirizine 10 mg PO DAILY PRN 06/17/18 02/23/20 History diltiazem HCl 180 mg PO DAILY 06/17/18 02/23/20 History flecainide 50 mg PO DAILY 06/17/18 02/23/20 History Patient History Medical History A-fib Surgical History Hx of appendectomy Hx of carpal tunnel repair Family History Other Cancer Diabetes Gallbladder disease Heart disease Hypertension Lung cancer Lung disease Social History Smoking Status: Never smoker Hx Alcohol Use: Yes Alcohol type: beer, wine and hard liquor Hx Substance Use: No Preferred Language: Mongolian Skull Grinder Required: No Beliefs That Will Affect Care: None marital status: Current Living Situation: Spouse and Family current occupational status: employed Other Information That Helps Us Care for You: No Feels Safe at Home: Yes Safety Concerns: Feels Safe At This Time Review of Systems Review of Systems: All systems reviewed & are unremarkable except as noted in HPI & below Physical Exam Constitutional: WD/WN, vitals as above Eyes: PERRL, conjunctivae normal, anicteric sclerae ENMT: external ear and nose normal, oropharynx normal Neck: trachea midline, no thyromegaly Respiratory: normal respiratory effort Cardiovascular: RRR, no murmur, no edema Gastrointestinal (Abdomen): normal bowel sounds, soft, nontender, no hepatosplenomegaly Musculoskeletal: Spine: no pain with thoraco-lumbar ROM On physical examination of his left shoulder, he has full range of motion with 140 degrees forward elevation 140 degrees of abduction. He has 5 out of 5 motor strength with full can testing and external rotation. He is a little bit of pain over the anterior biceps region. He has no pain over the AC joint no pain along the clavicle and no signs of deformity. Psychiatric: A+Ox3, euthymic affect Results & Data ([facility]) Vital Signs (Past 12 Hours) Vital Signs Temp Pulse Pulse Resp BP Pulse Ox 02/24/20 11:49 68 151/89 H 94 02/24/20 11:43 66 161/82 H 02/24/20 11:13 63 127/83 02/24/20 10:43 62 150/84 H 02/24/20 10:30 69 16 149/92 H 99 02/24/20 10:28 36.5 C 60 18 156/84 H 97 02/24/20 10:15 68 16 136/83 97 02/24/20 09:33 36.8 C 68 16 145/97 H 97 02/24/20 08:09 64 18 134/74 97 02/24/20 08:01 59 L 20 139/73 97 02/24/20 07:56 66 18 134/96 96 08/25/20 07:51 58 L 18 137/85 96 02/24/20 07:30 48 L 02/24/20 07:07 36.5 C 53 L 20 151/80 H 96 02/24/20 03:54 36.5 C 51 L 19 123/76 95 Diagnostic Findings The chest x-ray was reviewed. There is an upright marker arrow that is pointing towards the clavicle. It is difficult to see the pathology of the shoulder. X-rays of the left shoulder showed no evidence of arthritis. The humeral head is located within the glenoid. There is a little bit of AC joint arthritis. I do not see any osseous abnormalities. PG Care Time/CCT Total # of Minutes Spent Total Time Spent with Patient: Total time spent is greater than 50% in coordination of care (as documented) at patient's floor/unit and/or counseling patient: Coding Level of Care Code 87066 Inpt Consult Level 3 Diagnoses Unstable angina I20.0
--- NOTE | 2020-02-24 13:44 | Discharge Summary ---
Date of Service February 24, 2020 Admission HPI Per Admitting Provider DATE OF ADMISSION: 02/23/2020 CHIEF COMPLAINT: Chest pain. 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 when he noticed chest pain in the left side of his chest, dull aching pain, 6/10 in severity, radiating to the left shoulder and he was also feeling fatigued. He was finding it difficult to get up from the chair and move. This fatigueness is going on for the last 2-3 months, but he did not have any chest pain, this is the first time he had chest pain. In the ER, he was given nitroglycerin and initially pain seemed to improve, but seemed to be coming back again. No shortness of breath, no sweating, no nausea, no dizziness. Has tinnitus in the right ear for the last 3 years. Follows with ENT. No obvious etiology was found. No headache, no blurred visions, no earache, no runny nose, no sore throat. No sense of loss of smell or taste. No exposure to COVID. No nausea, no vomiting, no abdominal pain. Normal bowel and bladder movements. No blood in stools or black stools. He says that he noticed lately some swelling in his right ankle region. No rash seen. He also says lately climbing steps is making him short of breath and attributes it to his overall not being fit. Also feels that he is feeling foggy for the last few months. Currently, he is hemodynamically stable. Initial troponin and EKGs are okay. Could not tolerate atorvastatin with myalgias but recent lipid profile was okay. Principal Diagnosis Chest pain Paroxysmal Atrial Fibrillation Obstructive Sleep Apnea Discharge Exam Constitutional cooperative and comfortable Eyes EOM intact bilaterally ENMT external ear and nose normal, oropharynx normal Neck normal visual inspection Respiratory normal respiratory effort, lungs clear to auscultation Cardiovascular Rate/Rhythm: regular rhythm and + bradycardic Gastrointestinal (Abdomen) Inspection/Auscultation: normal bowel sounds Percussion/Palpation: abdomen soft Musculoskeletal Head/Neck/Chest: normocephalic and head atraumatic Neurologic PERRL, EOMI, accommodation nl, no face palsy, no dysarthria moves all extremities Psychiatric A+Ox3, euthymic affect Discharge Data Allergies Allergy/AdvReac Type Severity Reaction Status Date / Time meperidine Allergy HIVES Verified 02/23/20 18:42 Consultations 02/23/20 19:30 ED Decision to Admit Stat 02/24/20 07:57 Consult Cardiac Catheterization Routine 02/24/20 08:00 Consult Cardiology Routine 02/24/20 11:03 Consult Orthopedic Surgery Routine Procedures Performed Operation Date: 02/24/20 11:30 Actual Procedures s Cineradiography w/Routine Exam - Bryan Ruth, p Cath, Coronaries ONLY (no LV) - Bryan Ruth, Ordered Studies 02/24/20 09:17 CL Cath Imgs for PACS use only Routine Hospital Course (1) Chest pain: (Unstable Angina was initially suspected but ruled out by a negative cardiac catheterization) Abnormal echocardiogram PAF (paroxysmal atrial fibrillation) AN on CPAP Dyslipidemia Statin intolerance -as per admission H and P "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 when he noticed chest pain in the left side of his chest, dull aching pain, 6/10 in severity, radiating to the left shoulder and he was also feeling fatigued. He was finding it difficult to get up from the chair and move. This fatigueness is going on for the last 2-3 months, but he did not have any chest pain, this is the first time he had chest pain. In the ER, he was given nitroglycerin and initially pain seemed to improve, but seemed to be coming back again. No shortness of breath, no sweating, no nausea, no dizziness." -as per cardiology initial evaluation: "While his EKG and troponin levels are unremarkable there is a significant wall motion abnormality on his echocardiogram to suggest disease of the LAD system. He is still having some slight chest discomfort so he will be given sublingual nitroglycerin times now and be taken to the cardiac catheterization laboratory now. No beta-blockers have been started due to his resting bradycardia No statin was given due to his history of intolerance He is already on aspirin and that has been continued. 02/24/2020 Overnight the telemetry with bradycardia recorded as low as 38 bpm, however patient not complaining of any problems with sleep. he does not feel shortness of breath. he denies other symptoms -The patient has widely patent coronary anatomy on cardiac catheterization and cardiology Dr. Ferrell recommended hospital discharge without further cardiology interventions -bradycardia discussed with patient and the plan is to continue home dose of diltiazem and flecainide -normal TSH -management of obstructive sleep apnea also discussed -X ray shoulder studies does show Degenerative changes within the left AC joint. Patient is evaluated by orthopedic Dr. Welch and no acute surgical interventions. -patient was given IV fluids after cardiac cath and can be discharged to home to follow up with outpatient primary care and outpatient cardiology clinic Total Time Total Time Spent Total Time Spent (In Minutes): 40 minutes Total Time Includes: Examination of the Patient, Discharge Planning, Medication Reconciliation and Communication With Other Providers Discharge Plan Discharge Items Patient Disposition: Home - Self-Care Reason For Visit: chest pain Discharge Diagnosis: Chest pain Paroxysmal Atrial Fibrillation Obstructive Sleep Apnea Condition on Discharge: Good Activity: Per Instructions section Non-emergency contact: Primary Care Provider Call non-emergency contact if: you have any medication questions Follow-up/Referrals: Bruno Morris DO [Primary Care Provider] - Diet: Heart Healthy Addtl Attending Provider Instructions: Patient should continue with outpatient follow ups to primary care doctor and cardiology clinic Pending Studies at Discharge: No Stand-Alone Forms: [facility] [place], Smoking Cessation Medications and DC Order Prescriptions: Continued cetirizine 10 mg Tablet 10 mg PO DAILY PRN (Reason: Allergy Symptoms) RF: 0 aspirin 81 mg Tablet,Delayed Release (Dr/Ec) 81 mg PO DAILY RF: 0 flecainide 50 mg Tablet 50 mg PO DAILY RF: 0 diltiazem HCl 180 mg Tablet Extended Release 24 Hr 180 mg PO DAILY RF: 0 Discharge Orders: Discharge Order (Routine); Ordered 02/24/20 Ordered By: Omkar Langford Admission Data Admit Date/Time: 02/23/20 20:04 Attending Provider: Omkar Langford Admit Provider: Vaughn Sin Primary Care Provider: Bruno Morris V. Other Providers: Vaughn Sin ; Jeremy Ferrell ; Bridger Booth ; Tito Best ; Nicholas Hamilton ; Bryan Ruth ; Franklin Narayan ; Cecily Li ; Sarita Amador ; Ricky Petit ; Stefan Welch
== END 2020-02-24 14:58 | disposition home or self-care (01) ==
LOC: 2S 17:35 → ED 17:35 → 2S 20:39
PROC: CLB.CCO (2020-02-24 11:30)

== ENCOUNTER 2025-04-30 08:08 | Observation (INO) ==
--- NOTE | 2025-04-30 08:30 | Emergency Department Note ---
Impression & Plan Atrial fibrillation with rapid ventricular response, PAF (paroxysmal atrial fibrillation) ED Provider Note Name: MARIELY LANIER Age: 64 Sex: Male Arrives Via: Walk-In Informant: Patient ED Provider: Jared Todd MD Chief Complaint: A-fib Impression: As per impressions above Medical Decision Makin-year-old gentleman arrives for evaluation of atrial fibrillation. Patient with a long history of A-fib though following an ablation 3 years ago he has not had any issues. In fact he has been off all medications now for some time Patient awoke this morning with palpitations. Minimal symptoms otherwise. Heart rate was in the 140s to 170s thus arrives to the ER for further evaluation. On evaluation patient looks quite well. He is quite tachycardic in the 160s 70s on my evaluation. EKG is concerning. Laboratory open is unremarkable. Patient was given multiple doses of rate control medications via IV. While heart rate did initially improve did start trending back up. I did consult cardiology who evaluated the patient. They are bit concerned that A-fib could have been going on for more than just the last few hours and since he has been anticoagulated cardioversion at this point would be dangerous. Plan will be to give metoprolol p.o. along with Eliquis p.o. and see if he slows down or converts. During this time an echo was obtained. Unfortunately heart rate continued to remain elevated and he eventually was requiring IV Cardizem drip. This did help in controlling rate into the 90s or 100s. He wanted me to wait to you patient is feeling fine he is having no chest pain no other concerning signs or symptoms. Labs all look good. Patient is agreeable to hospitalization and have hospitalist consulted for further management. Given patient's history of recurrent A-fib and findings I do not feel this is consistent with ACS, PE, dissection or sepsis. Triage/Nursing Notes reviewed by Me External Chart Review by me: H&P from 10/03/22 was reviewed by me for past medical history Differential:Premature contractions, electrolyte abnormality, cardiac dysrhythmia, thyroid dysfunction, pulmonary embolism, infection, gastrointestinal, as well as other pathologies. Vital Signs: reviewed and remarkable for tachycardia Interventions: Lopressor 5 mg IV x 2, Cardizem 20 mg IV x 1, Cardizem 10 mg IV x 1, Cardizem drip, metoprolol 50 mg p.o., Eliquis 5 mg p.o. Labs:ED labs Reviewed by me and remarkable for no significant abnormalities Imaging: X ray results are stated below per my interpretation: Chest: 1 view: No infiltrate, no effusion, normal cardiac border. EKG:As per my interpretation. Indication palpitation. Atrial fibrillation with rapid ventricular response at 164 bpm and a QTc of 462. There is no overt ischemia appreciated. previous EKG comparison of October 04, 2022 patient was in normal sinus rhythm at that time. Cardiac/Tele Monitoring: Cardiac Monitoring: An Order was placed for continuous cardiac monitoring. The monitor shows a rate of 130 with a afib rvr rhythm. Consults:Dr Hamilton of cardiology we discussed the patient and he did come down to evaluate the patient initially we attempted to treat patients that he could be discharged however unfortunately heart rates continued to increase back up patient required hospitalization. Discussed with hospital service will further evaluate manage. Plan: Disposition:Hospitalization. Condition: Fair History of Present Illness: 66-year-old gentleman arrives for evaluation of A- fib. Patient notes a long history of A-fib with intermittent episodes of the last 20 years. He had an ablation about 3 years ago and has not had any issues since. Was feeling well last several days no symptoms of A-fib. This morning on awakening around 5 AM he noticed palpitations. His pulse was elevated. Patient did drink some water trying to see if that would improve without improvement. Did not take any medications for this. Denies any chest pain, shortness of breath, dyspnea on exertion, syncope. Arrives to the ER in no significant distress. Patient does have a history of COVID about 3 years ago and since then has been dealing with issues of chronic fatigue and elevated inflammatory markers. No significant change in symptoms from baseline though. Past Medical History: Paroxysmal A-fib, dyslipidemia, obstructive sleep apnea Home Medications: Patient is no longer on Eliquis or older diltiazem. Does take aspirin daily. Allergies: Meperidine Vitals:Blood Pressure: 173/104, Pulse 161, RR 19, T 36.4C, O2 96% on RA Physical Exam: GENERAL: Patient is well appearing and in no acute distress. RESPIRATORY: No dyspnea. Clear to auscultation and equal bilaterally. CARDIOVASCULAR: Tach irregular.No murmur appreciated. GASTROINTESTINAL: Abdomen soft, non-tender, no peritonitis. EXTREMITIES: Normal motion all extremities, no cyanosis, no edema. NEUROLOGIC: Alert and oriented. No focal neurologic deficits appreciated SKIN: No rash, no jaundice, no diaphoresis. PSYCH: Appropriate GCS: 15 ED Course: Times/Reassessments: Multiple repeat evaluation. Patient breathing well no distress. Initial heart rate did start improving before coming back up. Critical Care: I have personally spent 40 minutes of critical care time in the direct management of this patient. Atrial fibrillation with rapid ventricular response requiring multiple rate control IV medications. This was a life/limb threatening event. This 40 minutes is in excess of all separately billable procedures. Jared Todd MD Past Med/Surg History Problem List (Updated 04/30/25 @ 15:56 by Jared Todd MD) Elevated systolic blood pressure reading without diagnosis of hypertension Paroxysmal atrial fibrillation with RVR Atrial fibrillation with rapid ventricular response (Acute) Statin intolerance Dyslipidemia AN on CPAP PAF (paroxysmal atrial fibrillation) (Acute) Abnormal echocardiogram Chest pain (Acute) Bradycardia (Acute) Medical History (Updated 04/30/25 @ 15:56 by Jared Todd MD) A-fib Surgical History Hx of carpal tunnel repair Hx of appendectomy Family History Other Cancer Diabetes Gallbladder disease Heart disease Hypertension Lung cancer Lung disease Social History Smoking Status: Never smoker Hx Alcohol Use: Yes Alcohol type: beer, wine and hard liquor Hx Substance Use: No Preferred Language: Amharic Tech Ed Teacher Required: No Beliefs That Will Affect Care: None marital status: Current Living Situation: Alone current occupational status: employed Feels Safe at Home: Yes Assistive Devices: None Allergies Allergies Allergy/AdvReac Type Severity Reaction Status Date / Time meperidine Allergy HIVES Verified 04/30/25 13:10 Home Meds Home Medications Medication Instructions Recorded Confirmed No Known Home Medications 04/30/25 04/30/25 Results & Data (ED) Vital Signs Vital Signs - 24 hr 04/30/25 08:12 04/30/25 08:21 04/30/25 08:24 Temperature 36.4 C L Temperature Source Temporal Artery Scan Pulse Rate 95 H 161 H 157 H Pulse Rate [Apical] Pulse Rate from SpO2 Sensor Pulse Rhythm [Apical] Pulse Strength [Apical] Respiratory Rate 19 20 Respiratory Effort / Characteristics Respiratory Depth Respiratory Pattern Blood Pressure 173/104 H Blood Pressure [Right Arm] Blood Pressure Mean 127 Blood Pressure Mean [Right Arm] Blood Pressure Position [Right Arm] Pulse Oximetry 96 Oxygen Delivery Method Room Air Sepsis Recent Fever Within 48 Hours No Sepsis New/Unexplained Change in Mental Status N/A Sepsis Action Taken by Nursing No Action Required 04/30/25 08:27 04/30/25 08:31 04/30/25 08:31 Temperature Temperature Source Pulse Rate 150 H 161 H Pulse Rate [Apical] Pulse Rate from SpO2 Sensor Pulse Rhythm [Apical] Pulse Strength [Apical] Respiratory Rate 21 Respiratory Effort / Characteristics Respiratory Depth Respiratory Pattern Blood Pressure 137/109 H 137/109 H Blood Pressure [Right Arm] Blood Pressure Mean 117 Blood Pressure Mean [Right Arm] Blood Pressure Position [Right Arm] Pulse Oximetry Oxygen Delivery Method Sepsis Recent Fever Within 48 Hours Sepsis New/Unexplained Change in Mental Status Sepsis Action Taken by Nursing 04/30/25 08:33 04/30/25 08:47 04/30/25 08:47 Temperature Temperature Source Pulse Rate 152 H 139 H Pulse Rate [Apical] Pulse Rate from SpO2 Sensor 82 Pulse Rhythm [Apical] Pulse Strength [Apical] Respiratory Rate 20 Respiratory Effort / Characteristics Respiratory Depth Respiratory Pattern Blood Pressure 114/68 114/68 Blood Pressure [Right Arm] Blood Pressure Mean 81 Blood Pressure Mean [Right Arm] Blood Pressure Position [Right Arm] Pulse Oximetry 96 Oxygen Delivery Method Sepsis Recent Fever Within 48 Hours Sepsis New/Unexplained Change in Mental Status Sepsis Action Taken by Nursing 04/30/25 08:47 04/30/25 08:47 04/30/25 08:48 Temperature Temperature Source Pulse Rate 130 H Pulse Rate [Apical] Pulse Rate from SpO2 Sensor 95 H Pulse Rhythm [Apical] Pulse Strength [Apical] Respiratory Rate 17 Respiratory Effort / Characteristics Respiratory Depth Respiratory Pattern Blood Pressure 114/68 114/68 Blood Pressure [Right Arm] Blood Pressure Mean 81 81 Blood Pressure Mean [Right Arm] Blood Pressure Position [Right Arm] Pulse Oximetry 96 Oxygen Delivery Method Sepsis Recent Fever Within 48 Hours Sepsis New/Unexplained Change in Mental Status Sepsis Action Taken by Nursing 04/30/25 08:49 04/30/25 08:51 04/30/25 08:57 Temperature Temperature Source Pulse Rate 149 H 148 H 119 H Pulse Rate [Apical] Pulse Rate from SpO2 Sensor 85 84 Pulse Rhythm [Apical] Pulse Strength [Apical] Respiratory Rate 18 7 L Respiratory Effort / Characteristics Respiratory Depth Respiratory Pattern Blood Pressure 114/68 Blood Pressure [Right Arm] Blood Pressure Mean Blood Pressure Mean [Right Arm] Blood Pressure Position [Right Arm] Pulse Oximetry 96 96 Oxygen Delivery Method Sepsis Recent Fever Within 48 Hours Sepsis New/Unexplained Change in Mental Status Sepsis Action Taken by Nursing 04/30/25 09:00 04/30/25 09:05 04/30/25 09:09 Temperature Temperature Source Pulse Rate 142 H 127 H Pulse Rate [Apical] Pulse Rate from SpO2 Sensor 101 H Pulse Rhythm [Apical] Pulse Strength [Apical] Respiratory Rate 19 Respiratory Effort / Characteristics Respiratory Depth Respiratory Pattern Blood Pressure 129/104 H 129/104 H Blood Pressure [Right Arm] Blood Pressure Mean 116 Blood Pressure Mean [Right Arm] Blood Pressure Position [Right Arm] Pulse Oximetry 96 Oxygen Delivery Method Sepsis Recent Fever Within 48 Hours Sepsis New/Unexplained Change in Mental Status Sepsis Action Taken by Nursing 04/30/25 09:18 04/30/25 09:30 04/30/25 09:30 Temperature Temperature Source Pulse Rate 77 Pulse Rate [Apical] Pulse Rate from SpO2 Sensor 62 Pulse Rhythm [Apical] Pulse Strength [Apical] Respiratory Rate 13 Respiratory Effort / Characteristics Respiratory Depth Respiratory Pattern Blood Pressure 100/81 100/81 Blood Pressure [Right Arm] Blood Pressure Mean 86 86 Blood Pressure Mean [Right Arm] Blood Pressure Position [Right Arm] Pulse Oximetry 96 Oxygen Delivery Method Sepsis Recent Fever Within 48 Hours Sepsis New/Unexplained Change in Mental Status Sepsis Action Taken by Nursing 04/30/25 09:33 04/30/25 09:48 04/30/25 09:54 Temperature Temperature Source Pulse Rate 92 H 98 H 91 H Pulse Rate [Apical] Pulse Rate from SpO2 Sensor 62 75 Pulse Rhythm [Apical] Pulse Strength [Apical] Respiratory Rate 19 16 15 Respiratory Effort / Characteristics Respiratory Depth Respiratory Pattern Blood Pressure Blood Pressure [Right Arm] Blood Pressure Mean Blood Pressure Mean [Right Arm] Blood Pressure Position [Right Arm] Pulse Oximetry 95 94 Oxygen Delivery Method Sepsis Recent Fever Within 48 Hours Sepsis New/Unexplained Change in Mental Status Sepsis Action Taken by Nursing 04/30/25 10:01 04/30/25 10:12 04/30/25 10:24 Temperature Temperature Source Pulse Rate 126 H 107 H Pulse Rate [Apical] Pulse Rate from SpO2 Sensor 79 65 Pulse Rhythm [Apical] Pulse Strength [Apical] Respiratory Rate 19 26 H Respiratory Effort / Characteristics Respiratory Depth Respiratory Pattern Blood Pressure 119/86 Blood Pressure [Right Arm] Blood Pressure Mean 89 Blood Pressure Mean [Right Arm] Blood Pressure Position [Right Arm] Pulse Oximetry 96 97 Oxygen Delivery Method Sepsis Recent Fever Within 48 Hours Sepsis New/Unexplained Change in Mental Status Sepsis Action Taken by Nursing 04/30/25 10:31 04/30/25 10:31 04/30/25 10:31 Temperature Temperature Source Pulse Rate Pulse Rate [Apical] 117 H Pulse Rate from SpO2 Sensor Pulse Rhythm [Apical] Pulse Strength [Apical] Respiratory Rate 16 Respiratory Effort / Characteristics Non-Labored Spontaneous Respiratory Depth Normal Respiratory Pattern Blood Pressure 148/105 H 148/105 H Blood Pressure [Right Arm] 148/105 H Blood Pressure Mean 111 111 Blood Pressure Mean [Right Arm] 119 Blood Pressure Position [Right Arm] Pulse Oximetry 96 Oxygen Delivery Method Room Air Sepsis Recent Fever Within 48 Hours Sepsis New/Unexplained Change in Mental Status Sepsis Action Taken by Nursing 04/30/25 10:51 04/30/25 11:06 04/30/25 11:10 Temperature Temperature Source Pulse Rate 119 H 132 H Pulse Rate [Apical] Pulse Rate from SpO2 Sensor 66 82 Pulse Rhythm [Apical] Pulse Strength [Apical] Respiratory Rate 20 16 Respiratory Effort / Characteristics Respiratory Depth Respiratory Pattern Blood Pressure 119/92 Blood Pressure [Right Arm] Blood Pressure Mean 96 Blood Pressure Mean [Right Arm] Blood Pressure Position [Right Arm] Pulse Oximetry 96 96 Oxygen Delivery Method Sepsis Recent Fever Within 48 Hours Sepsis New/Unexplained Change in Mental Status Sepsis Action Taken by Nursing 04/30/25 11:10 04/30/25 11:12 04/30/25 11:24 Temperature Temperature Source Pulse Rate 155 H 127 H Pulse Rate [Apical] Pulse Rate from SpO2 Sensor 103 H 92 H Pulse Rhythm [Apical] Pulse Strength [Apical] Respiratory Rate 16 20 Respiratory Effort / Characteristics Respiratory Depth Respiratory Pattern Blood Pressure 119/92 Blood Pressure [Right Arm] Blood Pressure Mean 96 Blood Pressure Mean [Right Arm] Blood Pressure Position [Right Arm] Pulse Oximetry 96 96 Oxygen Delivery Method Sepsis Recent Fever Within 48 Hours Sepsis New/Unexplained Change in Mental Status Sepsis Action Taken by Nursing 04/30/25 11:32 04/30/25 11:42 04/30/25 11:51 Temperature Temperature Source Pulse Rate 140 H 116 H Pulse Rate [Apical] Pulse Rate from SpO2 Sensor 90 107 H Pulse Rhythm [Apical] Pulse Strength [Apical] Respiratory Rate 13 27 H Respiratory Effort / Characteristics Respiratory Depth Respiratory Pattern Blood Pressure 105/72 Blood Pressure [Right Arm] Blood Pressure Mean 78 Blood Pressure Mean [Right Arm] Blood Pressure Position [Right Arm] Pulse Oximetry 94 97 Oxygen Delivery Method Sepsis Recent Fever Within 48 Hours Sepsis New/Unexplained Change in Mental Status Sepsis Action Taken by Nursing 04/30/25 12:02 04/30/25 12:02 04/30/25 12:02 Temperature Temperature Source Pulse Rate Pulse Rate [Apical] Pulse Rate from SpO2 Sensor Pulse Rhythm [Apical] Pulse Strength [Apical] Respiratory Rate Respiratory Effort / Characteristics Respiratory Depth Respiratory Pattern Blood Pressure 127/81 127/81 127/81 Blood Pressure [Right Arm] Blood Pressure Mean 86 86 86 Blood Pressure Mean [Right Arm] Blood Pressure Position [Right Arm] Pulse Oximetry Oxygen Delivery Method Sepsis Recent Fever Within 48 Hours Sepsis New/Unexplained Change in Mental Status Sepsis Action Taken by Nursing 04/30/25 12:03 04/30/25 12:18 04/30/25 13:39 Temperature Temperature Source Pulse Rate 125 H 122 H Pulse Rate [Apical] 103 H Pulse Rate from SpO2 Sensor 86 Pulse Rhythm [Apical] Irregular Pulse Strength [Apical] Normal Respiratory Rate 14 18 Respiratory Effort / Characteristics Non-Labored Spontaneous Respiratory Depth Normal Respiratory Pattern Regular Blood Pressure Blood Pressure [Right Arm] 162/87 H Blood Pressure Mean Blood Pressure Mean [Right Arm] 112 Blood Pressure Position [Right Arm] Semi-fowlers Pulse Oximetry 95 96 Oxygen Delivery Method Room Air Sepsis Recent Fever Within 48 Hours Sepsis New/Unexplained Change in Mental Status Sepsis Action Taken by Nursing 04/30/25 13:50 Temperature Temperature Source Pulse Rate Pulse Rate [Apical] 89 Pulse Rate from SpO2 Sensor Pulse Rhythm [Apical] Irregular Pulse Strength [Apical] Normal Respiratory Rate 18 Respiratory Effort / Characteristics Non-Labored Spontaneous Respiratory Depth Normal Respiratory Pattern Regular Blood Pressure Blood Pressure [Right Arm] 136/88 Blood Pressure Mean Blood Pressure Mean [Right Arm] 104 Blood Pressure Position [Right Arm] Semi-fowlers Pulse Oximetry 95 Oxygen Delivery Method Room Air Sepsis Recent Fever Within 48 Hours Sepsis New/Unexplained Change in Mental Status Sepsis Action Taken by Nursing Laboratory Data 04/30/25 08:21 10/30/25 08:21 Lab Results 04/30/25 Range/Units 08:21 WBC 8.27 (4.8-10.8) K/ul RBC 5.51 (4.70-6.10) M/uL Hgb 16.6 (14.0-18.0) g/dl Hct 49.4 (42.0-52.0) % MCV 89.7 (80.0-100.0) fL MCH 30.1 (25.0-34.0) pg MCHC 33.6 (32.0-36.0) g/dL RDW Std Deviation 41.5 (36.4-46.3) fL RDW Coeff of Nichole 12.6 (11.5-14.5) % Plt Count 298 (130-400) K/uL MPV 10.1 (9.4-12.4) fL Immature Gran % (Auto) 0.5 % Neut % (Auto) 62.3 % Lymph % (Auto) 28.7 % [place] % (Auto) 6.3 % Eos % (Auto) 1.6 % Baso % (Auto) 0.6 % Neut # (Auto) 5.16 (1.40-6.50) K/uL Lymph # (Auto) 2.37 (1.20-3.40) K/uL [place] # (Auto) 0.52 (0.11-0.59) K/uL Eos # (Auto) 0.13 (0.00-0.50) K/uL Baso # (Auto) 0.05 (0.00-0.20) K/uL Immature Gran # (Auto) 0.04 (0.01-0.20) K/uL PT 10.5 (9.0-12.0) Seconds INR 1.0 (0.9-1.1) APTT 26 (21-31) Seconds PTT Ratio 1.0 Sodium 141 (136-145) mmol/L Potassium 4.2 (3.5-5.1) mmol/L Chloride 106 (98-107) mmol/L Carbon Dioxide 27 (21-32) mmol/L Anion Gap 8 (3-11) BUN 16 (6-23) mg/dl Creatinine 1.02 (0.6-1.4) mg/dl Est Cr Clr Drug Dosing 106.9 ml/min eGFR 82.58 BUN/Creatinine Ratio 15.7 (10-20) Glucose 123 H (70-99(Fasting)) mg/dl Calcium 9.1 (8.6-10.3) mg/dl Magnesium 2.2 (1.7-2.4) mg/dl Total Bilirubin 0.6 (0.2-1.0) mg/dl Direct Bilirubin 0.1 (0-0.2) mg/dl AST 17 (13-39) U/L ALT 23 (7-52) U/L Alkaline Phosphatase 58 (34-104) U/L Troponin I High Sens 11.5 (0-20) pg/ml Total Protein 8.0 (6.0-8.3) gm/dl Albumin 4.2 (3.4-5.0) gm/dl TSH 1.704 (0.300-4.500) uIu/ml Administered Medications Diltiazem HCl 125 mg/ Dextrose 125 mls @ 5 mls/hr IV .Q24H NORTH; Protocol Stop: 05/30/25 12:59 Last Titration: 04/30/25 14:46 Dose: 5 mg/hr, 5 mls/hr Documented By: Co-signed By: KYLEE Admin: 04/30/25 13:31 Dose: 5 mg/hr, 5 mls/hr Documented By: Co-signed By: LUTHER Discontinued Medications Apixaban (Apixaban 5 Mg Tablet) 5 mg PO ONE ONE Stop: 04/30/25 10:44 Last Admin: 04/30/25 11:09 Dose: 5 mg Documented By: ANEESH Diltiazem HCl (Diltiazem Hcl 5 Mg/Ml 5 Ml Vial) 20 mg IV NOW STA Stop: 04/30/25 09:06 Last Admin: 04/30/25 09:07 Dose: 20 mg Documented By: JODEE Co-signed By: Diltiazem HCl (Diltiazem Hcl 5 Mg/Ml 5 Ml Vial) 10 mg IV NOW STA Stop: 04/30/25 12:52 Last Admin: 04/30/25 13:31 Dose: 10 mg Documented By: Co-signed By: LUTHER Sodium Chloride (Nss) 1,000 mls @ 999 mls/hr IV .Q1H1M ONE Stop: 04/30/25 09:27 Last Infusion: 04/30/25 10:30 Dose: Infused Documented By: Admin: 04/30/25 08:32 Dose: 999 mls/hr Documented By: JODEE Metoprolol Tartrate (Metoprolol Tartrate 1 Mg/Ml Vial) 5 mg IV NOW STA Stop: 04/30/25 08:28 Last Admin: 04/30/25 08:31 Dose: 5 mg Documented By: JODEE Metoprolol Tartrate (Metoprolol Tartrate 1 Mg/Ml Vial) 5 mg IV NOW STA Stop: 04/30/25 08:41 Last Admin: 04/30/25 08:47 Dose: 5 mg Documented By: JODEE Metoprolol Tartrate (Metoprolol Tartrate 50 Mg Tab) 50 mg PO NOW STA Stop: 04/30/25 10:44 Last Admin: 04/30/25 11:07 Dose: 50 mg Documented By: ANEESH Imaging Data Radiologist's Impression: Chest X-Ray 04/30/25 08:28 XR chest 1V portable CLINICAL HISTORY: arrythmia COMPARISON STUDY: 04/14/2021 FINDINGS: Heart size and pulmonary vasculature are normal. No consolidation or pleural effusion. No pneumothorax. IMPRESSION: No acute findings. ACT 112: Negative or not required by law. Electronically signed by: Jeremy Rodriguez M.D. 04/30/2025 8:42 AM Discharge Plan Visit Data Chief Complaint: Cardiac Assessment Stated Complaint: AFIB ED Provider: Jared Todd Discharge Problem: Atrial fibrillation with rapid ventricular response, PAF (paroxysmal atrial fibrillation) Patient Disposition: Admitted As Inpatient Condition: Fair Forms Stand Alone Forms: [facility], Important Visit Information Prescriptions Prescriptions: No Action No Known Home Medications Referrals Referrals: Nadeem Duran MD [Primary Care Provider] -
[2025-04-30] MEDS: METOPROLOL TARTRATE 1 MG/ML VIAL IV STA ×2 (08:31→08:47)
[2025-04-30] MEDS: SODIUM CHLORIDE 0.9% 1,000 ML IV ONE (08:32)
--- NOTE | 2025-04-30 08:43 | XRay Report ---
XR chest 1V portable CLINICAL HISTORY: arrythmia COMPARISON STUDY: 04/14/2021 FINDINGS: Heart size and pulmonary vasculature are normal. No consolidation or pleural effusion. No p neumothorax. IMPRESSION: No acute findings. ACT 112: Negative or not required by law. Electronically signed by: Jeremy Rodriguez M.D. 04/30/2025 8:42 AM
[2025-04-30 08:58] LABS: Hematocrit (blood only) 49.4 % (42.0-52.0); Hemoglobin 16.6 g/dl (14.0-18.0); Immature Granulocytes # (auto) 0.04 K/uL (0.01-0.20); Immature Granulocytes % (auto) 0.5 %; Mean Corpuscular Hemoglobin 30.1 pg (25.0-34.0); Mean Corpuscular Volume 89.7 fL (80.0-100.0); Platelet Count 298 K/uL (130-400); RDW Standard Deviation 41.5 fL (36.4-46.3); Red Blood Count 5.51 M/uL (4.70-6.10); White Blood Count 8.27 K/ul (4.8-10.8)
[2025-04-30 09:25] LABS: Alanine Aminotransferase 23.0 U/L (7-52); Albumin Level 4.2 gm/dl (3.4-5.0); Alkaline Phosphatase 58.0 U/L (34-104); Anion Gap 8.0 (3-11); Bilirubin,Total 0.6 mg/dl (0.2-1.0); Blood Urea Nitrogen 16.0 mg/dl (6-23); Calcium 9.1 mg/dl (8.6-10.3); Carbon Dioxide 27.0 mmol/L (21-32); Chloride 106.0 mmol/L (98-107); Creatinine Clr Calc Pharmacy 106.9 ml/min; Glucose 123.0 mg/dl (70-99(Fasting)); Magnesium 2.2 mg/dl (1.7-2.4); Potassium 4.2 mmol/L (3.5-5.1); Sodium 141.0 mmol/L (136-145); Total Protein 8.0 gm/dl (6.0-8.3)
[2025-04-30 09:40] LABS: INR 1.0 (0.9-1.1); Partial Thromboplastin Time 26 Seconds (21-31); Prothrombin Time 10.5 Seconds (9.0-12.0)
[2025-04-30 09:41] LABS: Thyroid Stimulating Hormone 1.704 uIu/ml (0.300-4.500)
[2025-04-30] MEDS: METOPROLOL TARTRATE 50 MG TAB PO STA (11:07)
[2025-04-30] MEDS: APIXABAN 5 MG TABLET PO ONE (11:09)
--- NOTE | 2025-04-30 11:56 | Cardiology Consultation ---
Date of Consultation April 30, 2025 Assessment & Plan (1) Paroxysmal atrial fibrillation with RVR: (2) Elevated systolic blood pressure reading without diagnosis of hypertension: (3) AN on CPAP: Plan 64-year-old male with history of PVI ablation 2022 presents with recurrent atrial fibrillation and rapid ventricular response. Mildly symptomatic at higher heart rates although currently feels well with heart rate in the 120s to 130s. No chest discomfort or evidence of acute coronary syndrome. Documented unsuccessful use of "pill in pocket" flecainide 300 mg in the past. Duration of atrial fibrillation likely under 24 hours, however, somewhat difficult to gauge given lack of symptoms at lower heart rates. Natural history, pathophysiology and stroke risk associated with atrial fibrillation discussed. Patient's CHADS2 Vasc score is 0-1 secondary to elevated situation blood pressure and possible hypertension. Treatment options discussed including addition of beta-han and Eliquis with elective external direct-current cardioversions after 4 weeks of adequate anticoagulation versus expedited cardioversion with transesophageal echo guidance. Patient prefers the latter. Treat with 50 mg oral metoprolol and 5 mg Eliquis now. Recommend minimum 4 weeks of oral anticoagulation post cardioversion. Likely continue metoprolol long-term as well. If heart rate improved patient remains asymptomatic he may be discharged from the ER and follow-up tomorrow morning for transesophageal echocardiogram guided direct-current cardioversion. If heart rate remains elevated and difficult control will initiate treatment with IV diltiazem infusion, admit for overnight observation, continue Eliquis 5 mg twice daily, and proceed with transesophageal echo guided cardioversion in the a.m. 05/01/2025. Repeat resting 2D transthoracic echocardiogram ordered and will be performed today. Case discussed with ER physician for continuity of care. Nicholas Hamilton DO [facility] History of Present Illness Reason for Consultation: Atrial fibrillation with rapid ventricular response Requesting Physician: Dr. Jared Todd Attending Physician: Dr. Jared Todd History of Present Illness 64-year-old male presents to the emergency department with palpitations and tachycardia. Woke up this morning feeling "odd feeling in his chest". Sensation similar to prior episodes of atrial fibrillation. Atrial fibrillation with rapid ventricular response confirmed per edition ECG with heart rate of 164 bpm. He was treated with IV Lopressor and diltiazem. Heart rates improved down to 110s to 130s. Currently asymptomatic with heart rate of 120 bpm. Reports he is not as sensitive to episodes of A-fib as he had been years ago. PVI ablation performed at [facility] [place] [facility] 12/12/[address] Calzada. Previously treated with combination of diltiazem and Eliquis however, both medications discontinued in 2022. There is documentation of prior unsuccessful "pill in pocket" treatment with 300 mg of flecainide. Cardiac catheterization performed 2019 demonstrated normal coronary arteries. Currently resting comfortably. Denies chest pain or shortness of breath at rest. Unsure of whether he has experienced episodes of atrial fibrillation over the past few days to weeks as he is not particularly symptomatic with his current episode. Blood pressure mildly elevated although he was previously treated with diltiazem and lisinopril, he does not carry diagnosis of hypertension. No orthopnea, PND, or lower extremity edema. 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 Denies any recent change or decline in functional capacity/exercise tolerance. Allergies Allergy/AdvReac Type Severity Reaction Status Date / Time meperidine Allergy HIVES Verified 04/30/25 13:10 Home Medications Medication Instructions Recorded Confirmed Type No Known Home Medications 04/30/25 04/30/25 History Patient History Medical History (Updated 04/30/25 @ 11:50 by Nicholas Hamilton DO) A-fib Surgical History Hx of carpal tunnel repair Hx of appendectomy Family History Other Cancer Diabetes Gallbladder disease Heart disease Hypertension Lung cancer Lung disease Social History Smoking Status: Never smoker Hx Alcohol Use: Yes Alcohol type: beer, wine and hard liquor Hx Substance Use: No Preferred Language: French Incising Machine Operator Required: No Beliefs That Will Affect Care: None marital status: Current Living Situation: Alone current occupational status: employed Feels Safe at Home: Yes Assistive Devices: None Review of Systems Review of Systems: All systems reviewed & are unremarkable except as noted in Subjective Physical Exam Constitutional: well nourished; no acute distress Respiratory: no respiratory distress, no labored breathing and no retractions Auscultation: no crackles, no rales, no rhonchi and no wheezes Cardiovascular: Rate/Rhythm: + tachycardic and + irregularly irregular Heart Sounds: normal S1 and normal S2; no murmur Vessels: radial pulses present; no JVD and no carotid bruit Extremities: no edema Gastrointestinal (Abdomen): Inspection/Auscultation: abdomen normal to inspection; abdomen not distended Neurologic: CN's II-XI intact bilaterally and moves all extremities; no focal motor deficits Results & Data Vital Signs (Past 12 Hours) Vital Signs Temp Pulse Pulse Resp BP BP Pulse Ox 04/30/25 11:06 132 H 16 96 04/30/25 10:51 119 H 20 96 04/30/25 10:31 148/105 H 04/30/25 10:31 148/105 H 04/30/25 10:31 117 H 16 148/105 H 96 04/30/25 10:24 107 H 26 H 97 04/30/25 10:12 126 H 19 96 04/30/25 10:01 119/86 04/30/25 09:54 91 H 15 94 04/30/25 09:48 98 H 16 95 04/30/25 09:33 92 H 19 04/30/25 09:30 100/81 04/30/25 09:30 100/81 04/30/25 09:18 77 13 96 04/30/25 09:09 127 H 19 96 04/30/25 09:05 142 H 129/104 H 04/30/25 09:00 129/104 H 04/30/25 08:57 119 H 7 L 96 04/30/25 08:51 148 H 18 96 04/30/25 08:49 149 H 114/68 04/30/25 08:48 130 H 17 96 04/30/25 08:47 114/68 04/30/25 08:47 114/68 04/30/25 08:47 114/68 04/30/25 08:47 139 H 114/68 04/30/25 08:33 152 H 20 96 04/30/25 08:31 137/109 H 04/30/25 08:31 161 H 137/109 H 04/30/25 08:27 150 H 21 04/30/25 08:24 157 H 20 04/30/25 08:21 161 H 04/30/25 08:12 36.4 C L 95 H 19 173/104 H 96 O2 Del Method 04/30/25 11:06 04/30/25 10:51 04/30/25 10:31 04/30/25 10:31 04/30/25 10:31 Room Air 04/30/25 10:24 04/30/25 10:12 04/30/25 10:01 04/30/25 09:54 04/30/25 09:48 04/30/25 09:33 04/30/25 09:30 04/30/25 09:30 04/30/25 09:18 04/30/25 09:09 04/30/25 09:05 04/30/25 09:00 04/30/25 08:57 04/30/25 08:51 04/30/25 08:49 04/30/25 08:48 04/30/25 08:47 04/30/25 08:47 04/30/25 08:47 04/30/25 08:47 04/30/25 08:33 04/30/25 08:31 04/30/25 08:31 04/30/25 08:27 04/30/25 08:24 04/30/25 08:21 04/30/25 08:12 Room Air Laboratory Results Cardiac Enzymes 04/30/25 Range/Units 08:21 AST 17 (13-39) U/L Troponin I High Sens 11.5 (0-20) pg/ml Coagulation 04/30/25 Range/Units 08:21 PT 10.5 (9.0-12.0) Seconds APTT 26 (21-31) Seconds CBC 04/30/25 Range/Units 08:21 WBC 8.27 (4.8-10.8) K/ul RBC 5.51 (4.70-6.10) M/uL Hgb 16.6 (14.0-18.0) g/dl Hct 49.4 (42.0-52.0) % Plt Count 298 (130-400) K/uL Neut # (Auto) 5.16 (1.40-6.50) K/uL Lymph # (Auto) 2.37 (1.20-3.40) K/uL [place] # (Auto) 0.52 (0.11-0.59) K/uL Eos # (Auto) 0.13 (0.00-0.50) K/uL Baso # (Auto) 0.05 (0.00-0.20) K/uL Comprehensive Metabolic Panel 04/30/25 Range/Units 08:21 Sodium 141 (136-145) mmol/L Potassium 4.2 (3.5-5.1) mmol/L Chloride 106 (98-107) mmol/L Carbon Dioxide 27 (21-32) mmol/L BUN 16 (6-23) mg/dl Creatinine 1.02 (0.6-1.4) mg/dl Glucose 123 H (70-99(Fasting)) mg/dl Calcium 9.1 (8.6-10.3) mg/dl Direct Bilirubin 0.1 (0-0.2) mg/dl AST 17 (13-39) U/L ALT 23 (7-52) U/L Alkaline Phosphatase 58 (34-104) U/L Total Protein 8.0 (6.0-8.3) gm/dl Albumin 4.2 (3.4-5.0) gm/dl Intake and Output 04/29/25 04/30/25 04/30/25 22:59 06:59 14:59 Intake Total 1000 / 1000 Balance 1000 / 1000 Intake: IV 1000 / 1000 Sodium Chloride 0.9% 1,000 ml @ 1000 / 1000 999 mls/hr IV .Q1H1M ONE Rx#: [id number] Other: Weight 131.5 kg Weight Measurement Method Chair Scale Patient Weight 05/01/25 06:59 Weight 131.5 kg PG Care Time/CCT Total # of Minutes Spent Total Time Spent with Patient: Total time spent is greater than 50% in coordination of care (as documented) at patient's floor/unit and/or counseling patient: Coding Level of Care Code 70776 OFFICE CONSULT LVL M Diagnoses Paroxysmal atrial fibrillation with RVR I48.0 Elevated systolic blood pressure reading without diagnosis of hypertension R03.0 AN on CPAP G47.33; Z99.89
[2025-04-30] MEDS ORDERED: STAT IV Infusion **Titration per Protocol STA (12:51)
--- NOTE | 2025-04-30 13:03 | XCELERA ---
[id number] \\[id number]
--- NOTE | 2025-04-30 13:43 | History & Physical Report ---
Date of Service April 30, 2025 Assessment & Plan (1) Paroxysmal atrial fibrillation with RVR: (2) Elevated systolic blood pressure reading without diagnosis of hypertension: (3) AN on CPAP: Plan 64-year-old gentleman with known history of paroxysmal atrial fibrillation pres ents with rapid ventricular response. Did not respond to initial treatments in the ED. Patient has a risk for complication associated with his rapid ventricular response and needs hospital level care and interventions. Observe in a monitored setting Start IV Cardizem drip Continue Eliquis Continue oral metoprolol Consult cardiology to consider JAS cardioversion tomorrow Continue home CPAP Monitor electrolytes Anticipate patient may be able to be discharged home after cardioversion tomorrow. 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 Patient has a known history of paroxysmal atrial fibrillation with previous cardioversions. Most recently underwent PVI ablation in 2022. After that he remained in sinus rhythm has been off all medications since then. Patient woke up this morning with feelings palpitations heart racing and irregular heart and could tell that he was in atrial fibrillation. Came to the emergency room where EKG confirmed. In the emergency room received IV metoprolol x 2 with minimal impact on his heart rate. Patient was seen by cardiology in the emergency department. Gave him a dose of oral metoprolol. Goal was to see if his heart rate could be controlled with metoprolol and then consider outpatient cardioversion after he had resumed his Eliquis. He was also given Eliquis here in the emergency department. Unfortunately heart rate did not respond to the oral metoprolol and he remained in rapid ventricular response. He was referred to our service help coordinate care in the hospital and plan for JAS cardioversion tomorrow. In the past patient has done very well and actually converted on a Cardizem drip. That was ordered by cardiology after he did not respond to the oral metoprolol. Time my evaluation the patient is resting comfortably. Does feel some palpitations but no chest pain. No sh ortness of breath. He states that overall he has been feeling well. He states he had COVID a couple months ago and feels as though he is suffering from some long COVID symptoms with brain fog and altered memory. But he denies any recent fevers. No cough or cold symptoms. No nausea no vomiting. No new problems with bowels or bladder. No swelling hands arms legs or feet. Has not had any significant use of alcohol. States his last beer was maybe a month ago. States he tries to stay hydrated as he knows that in the past that has caused his fibrillation. Allergies Allergy/AdvReac Type Severity Reaction Status Date / Time meperidine Allergy HIVES Verified 04/30/25 13:10 Home Medications Medication Instructions Recorded Confirmed Type No Known Home Medications 04/30/25 04/30/25 History Past Med/Surg History Problem List (Updated 04/30/25 @ 11:50 by Nicholas Hamilton DO) Elevated systolic blood pressure reading without diagnosis of hypertension Paroxysmal atrial fibrillation with RVR Atrial fibrillation with rapid ventricular response (Acute) Statin intolerance Dyslipidemia AN on CPAP PAF (paroxysmal atrial fibrillation) Abnormal echocardiogram Chest pain (Acute) Bradycardia (Acute) Medical History (Updated 04/30/25 @ 11:50 by Nicholas Hamilton DO) A-fib Surgical History Hx of carpal tunnel repair Hx of appendectomy Family History Other Cancer Diabetes Gallbladder disease Heart disease Hypertension Lung cancer Lung disease Social History Smoking Status: Never smoker Hx Alcohol Use: Yes Alcohol type: beer, wine and hard liquor Hx Substance Use: No Preferred Language: Upper Sorbian File Clerk Required: No Beliefs That Will Affect Care: None marital status: Current Living Situation: Alone current occupational status: employed Feels Safe at Home: Yes Assistive Devices: None Review of Systems Review of Systems: Pertinent positive and negative review of systems as mentioned in the HPI Physical Exam Physical Exam: Constitutional: Alert, nontoxic HEENT: Mucous membranes moist. Sclera clear Neck: Soft, no adenopathy Lungs: Clear to auscultation, decreased, no wheezes rales or rhonchi CV: S1-S2, irregular irregular, tachycardic Abdomen: Soft, nontender, nondistended Extremities: No significant edema Musculoskeletal: No significant joint tenderness Neuro: No focal deficits Psych: Cooperative, normal mood Results & Data Results & Data Vital Signs (Past 12 Hours) Vital Signs Temp Pulse Pulse Resp BP BP Pulse Ox 04/30/25 12:18 122 H 04/30/25 12:03 125 H 14 95 04/30/25 12:02 127/81 04/30/25 12:02 127/81 04/30/25 12:02 127/81 04/30/25 11:51 116 H 27 H 97 04/30/25 11:42 140 H 13 94 04/30/25 11:32 105/72 04/30/25 11:24 127 H 20 96 04/30/25 11:12 155 H 16 96 04/30/25 11:10 119/92 04/30/25 11:10 119/92 04/30/25 11:06 132 H 16 96 04/30/25 10:51 119 H 20 96 04/30/25 10:31 148/105 H 04/30/25 10:31 148/105 H 04/30/25 10:31 117 H 16 148/105 H 96 04/30/25 10:24 107 H 26 H 97 04/30/25 10:12 126 H 19 96 04/30/25 10:01 119/86 04/30/25 09:54 91 H 15 94 04/30/25 09:48 98 H 16 95 04/30/25 09:33 92 H 19 04/30/25 09:30 100/81 04/30/25 09:30 100/81 04/30/25 09:18 77 13 96 04/30/25 09:09 127 H 19 96 04/30/25 09:05 142 H 129/104 H 04/30/25 09:00 129/104 H 04/30/25 08:57 119 H 7 L 96 04/30/25 08:51 148 H 18 96 04/30/25 08:49 149 H 114/68 04/30/25 08:48 130 H 17 96 04/30/25 08:47 114/68 04/30/25 08:47 114/68 04/30/25 08:47 114/68 04/30/25 08:47 139 H 114/68 04/30/25 08:33 152 H 20 96 04/30/25 08:31 137/109 H 04/30/25 08:31 161 H 137/109 H 04/30/25 08:27 150 H 21 10/30/25 08:24 157 H 20 04/30/25 08:21 161 H 04/30/25 08:12 36.4 C L 95 H 19 173/104 H 96 O2 Del Method 04/30/25 12:18 04/30/25 12:03 04/30/25 12:02 04/30/25 12:02 04/30/25 12:02 04/30/25 11:51 04/30/25 11:42 04/30/25 11:32 04/30/25 11:24 04/30/25 11:12 04/30/25 11:10 04/30/25 11:10 04/30/25 11:06 04/30/25 10:51 04/30/25 10:31 04/30/25 10:31 04/30/25 10:31 Room Air 04/30/25 10:24 04/30/25 10:12 04/30/25 10:01 04/30/25 09:54 04/30/25 09:48 04/30/25 09:33 04/30/25 09:30 04/30/25 09:30 04/30/25 09:18 04/30/25 09:09 04/30/25 09:05 04/30/25 09:00 04/30/25 08:57 04/30/25 08:51 04/30/25 08:49 04/30/25 08:48 04/30/25 08:47 04/30/25 08:47 04/30/25 08:47 04/30/25 08:47 04/30/25 08:33 04/30/25 08:31 04/30/25 08:31 04/30/25 08:27 04/30/25 08:24 04/30/25 08:21 04/30/25 08:12 Room Air Diagnostic Findings Reviewed imaging, laboratory and diagnostic studies. Pertinent findings as below. CBC within normal limits Coags within normal limits Electrolytes within normal limits Creatinine 1.02 Nonfasting glucose 123 LFTs within normal limits Troponin 11.5 TSH 1.7 Personally reviewed chest x-ray, no acute cardiopulmonary abnormalities or in filtrates Personally reviewed EKG #1: Atrial fibrillation with rapid ventricular response Personally reviewed EKG #2: Atrial fibrillation with controlled ventricular response Personally reviewed telemetry: Currently atrial fibrillation with rapid ventricular response Reviewed echocardiogram report performed today: shows a normal ejection fraction of 55 to 60%, normal systolic function. Mildly dilated left atrium, no significant valvular abnormalities. Significant change from 2019 shows now mildly dilated left atrium Code Status & VTE Plan VTE Prophylaxis Plan VTE Prophylaxis will be ordered: No Reason for no VTE drug order: Contraindicated
--- NOTE | 2025-04-30 15:46 | Electrocardiogram Report ---
Test Reason : Blood Pressure : */* mmHG Vent. Rate : 164 BPM Atrial Rate : * BPM P-R Int : * ms QRS Dur : 84 ms QT Int : 280 ms P-R-T Axes : * -49 84 degrees QTcB Int : 462 ms Atrial fibrillation with rapid ventricular response Left anterior fascicular block Nonspecific ST abnormality Abnormal ECG Confirmed by Kenan Galeas ([id number]) on 04/30/2025 3:45:44 PM Referred By: Confirmed By: Kenan Galeas
--- NOTE | 2025-04-30 15:48 | Electrocardiogram Report ---
Test Reason : Blood Pressure : */* mmHG Vent. Rate : 77 BPM Atrial Rate : * BPM P-R Int : * ms QRS Dur : 104 ms QT Int : 350 ms P-R-T Axes : * -44 6 degrees QTcB Int : 396 ms Atrial fibrillation Left axis deviation Abnormal ECG When compared with ECG of 30-Apr-2025 08:19, (unconfirmed) Vent. rate has decreased by [address] no longer depressed in Lateral leads T wave inversion now evident in Inferior leads Confirmed by Kenan Galeas ([id number]) on 04/30/2025 3:48:50 PM Referred By: REFERRED SELF Confirmed By: Kenan Galeas
[2025-04-30] MEDS ORDERED: ONDANSETRON INJ 2 MG/ML 2 ML VIAL IV PRN (16:44)
[2025-04-30] MEDS ORDERED: MELATONIN 3 MG TAB PO PRN (16:44)
[2025-04-30] MEDS ORDERED: POLYETHYLENE (MIRALAX) 17 GM PACK PO PRN (16:44)
[2025-04-30] MEDS ORDERED: ACETAMINOPHEN 325 MG TAB PO PRN (16:44)
[2025-04-30] MEDS ORDERED: ALUMINUM/MAGNESIUM SUSP 30 ML UDC PO PRN (16:44)
[2025-04-30] MEDS: METOPROLOL TARTRATE 50 MG TAB PO SCH (20:37)
[2025-04-30] MEDS: APIXABAN 5 MG TABLET PO SCH (20:38)
[2025-04-30] MEDS ORDERED: APIXABAN 5 MG TABLET PO SCH (21:00)
[2025-04-30] MEDS ORDERED: METOPROLOL TARTRATE 25 MG TAB PO SCH (21:00)
[2025-05-01 06:29] LABS: Hematocrit (blood only) 44.9 % (42.0-52.0); Hemoglobin 15.9 g/dl (14.0-18.0); Mean Corpuscular Hemoglobin 32.1 pg (25.0-34.0); Mean Corpuscular Volume 90.5 fL (80.0-100.0); Platelet Count 272 K/uL (130-400); RDW Standard Deviation 41.9 fL (36.4-46.3); Red Blood Count 4.96 M/uL (4.70-6.10); White Blood Count 9.92 K/ul (4.8-10.8)
[2025-05-01 07:17] LABS: Anion Gap 6.0 (3-11); Blood Urea Nitrogen 19.0 mg/dl (6-23); Calcium 8.9 mg/dl (8.6-10.3); Carbon Dioxide 28.0 mmol/L (21-32); Chloride 106.0 mmol/L (98-107); Creatinine Clr Calc Pharmacy 86.5 ml/min; Glucose 112.0 mg/dl (70-99(Fasting)); Magnesium 2.3 mg/dl (1.7-2.4); Potassium 4.9 mmol/L (3.5-5.1); Sodium 140.0 mmol/L (136-145)
[2025-05-01] MEDS: METOPROLOL SUCC 50MG EXT REL TAB PO SCH (08:59)
[2025-05-01] MEDS: LIDOCAINE 2% 2 ML VIAL/AMP(20MG/ML) INFIL ONE (08:59)
[2025-05-01] MEDS ORDERED: PROPOFOL IV EMULSION 10 MG/ML 20 ML VIAL IV ONE (09:01)
[2025-05-01] MEDS ORDERED: PHENYLEPHRINE 100MCG/ML 5ML SYR ONE (09:01)
--- NOTE | 2025-05-01 09:10 | Anesthesiology Progress Note ---
Date of Service May 01, 2025 Anesthesia Post Procedure Vital Signs Vital Signs: Temp Pulse Pulse Pulse Resp BP BP 05/01/25 09:04 36.7 C 54 L 17 05/01/25 08:35 50 L 16 05/01/25 08:20 56 L 18 91/64 L 05/01/25 08:05 54 L 18 102/59 L 05/01/25 08:04 89 05/01/25 07:28 36.8 C 113 H 18 134/90 05/01/25 03:22 36.4 C L 69 18 113/69 04/30/25 23:15 36.5 C 63 20 117/82 04/30/25 21:40 84 04/30/25 19:39 36.4 C L 82 18 126/98 04/30/25 16:55 36.3 C L 121 H 14 04/30/25 16:55 103 H 04/30/25 16:44 04/30/25 16:40 04/30/25 16:03 98 H 18 04/30/25 13:50 89 18 04/30/25 13:39 103 H 18 04/30/25 12:18 122 H 04/30/25 12:03 125 H 14 04/30/25 12:02 127/81 04/30/25 12:02 127/81 04/30/25 12:02 127/81 04/30/25 11:51 116 H 27 H 04/30/25 11:42 140 H 13 04/30/25 11:32 105/72 04/30/25 11:24 127 H 20 04/30/25 11:12 155 H 16 04/30/25 11:10 119/92 04/30/25 11:10 119/92 04/30/25 11:06 132 H 16 04/30/25 10:51 119 H 20 04/30/25 10:31 148/105 H 04/30/25 10:31 148/105 H 04/30/25 10:31 117 H 16 04/30/25 10:24 107 H 26 H 04/30/25 10:12 126 H 19 04/30/25 10:01 119/86 04/30/25 09:54 91 H 15 04/30/25 09:48 98 H 16 04/30/25 09:33 92 H 19 04/30/25 09:30 100/81 04/30/25 09:30 100/81 04/30/25 09:18 77 13 BP Pulse Ox Pulse Ox O2 Del Method O2 Del Method 05/01/25 09:04 100/72 98 Room Air 05/01/25 08:35 101/67 95 Room Air 05/01/25 08:20 95 Room Air 05/01/25 08:05 98 Room Air 05/01/25 08:04 05/01/25 07:28 95 Room Air 05/01/25 03:22 95 CPAP 04/30/25 23:15 96 CPAP 04/30/25 21:40 04/30/25 19:39 95 Room Air 04/30/25 16:55 164/99 H 96 Room Air 04/30/25 16:55 04/30/25 16:44 98 Room Air 04/30/25 16:40 Room Air 04/30/25 16:03 137/100 96 Room Air 04/30/25 13:50 136/88 95 Room Air 04/30/25 13:39 162/87 H 96 Room Air 04/30/25 12:18 04/30/25 12:03 95 04/30/25 12:02 04/30/25 12:02 04/30/25 12:02 04/30/25 11:51 97 04/30/25 11:42 94 04/30/25 11:32 04/30/25 11:24 96 04/30/25 11:12 96 04/30/25 11:10 04/30/25 11:10 04/30/25 11:06 96 04/30/25 10:51 96 04/30/25 10:31 04/30/25 10:31 04/30/25 10:31 148/105 H 96 Room Air 04/30/25 10:24 97 04/30/25 10:12 96 04/30/25 10:01 04/30/25 09:54 94 04/30/25 09:48 95 04/30/25 09:33 04/30/25 09:30 04/30/25 09:30 04/30/25 09:18 96 Transfer of Care Handoff Completed per policy Notes Mental Status: alert / awake / arousable and participated in evaluation Patient Amnestic to Procedure: Yes Nausea / Vomiting: adequately controlled Pain: adequately controlled Airway Patency, RR, SpO2: stable & adequate BP & HR: stable & adequate Hydration State: stable & adequate Anesthetic Complications: no major complications apparent
--- NOTE | 2025-05-01 09:16 | Post Operative Brief Note ---
PG Immediate Post Op with CF Date of Surgery May 01, 2025 Pre & Post Diagnosis Operation Date: 05/01/25 07:15 Preoperative diagnosis: Paroxysmal atrial fibrillation with rapid ventricular response Postoperative diagnosis: Same plus status post external direct-current cardioversion I identified the patient and participated in the time-out.: Yes Procedure Operation Date: 05/01/25 07:15 Actual Procedures p Trans-Esophageal Echo - Nicholas Hamilton, s Echo Color Flow - Nicholas Hamilton DO p Cardioversion w/Anesthesia Sedation - Nicholas Hamilton DO Surgeon Nicholas Hamilton DO Order Dispatcher Mandi Marcelo RDCS Estimated Blood Loss 0 Findings Consistent with Post-Op Diagnosis Preserved LV systolic function. No left atrial appendage thrombus. Successful cardioversion from atrial fibrillation with rapid ventricular response to normal sinus rhythm with 200 J. Fluids See anesthesia flowsheet. Anesthesia Type MAC Complications none Disposition Accompanied Patient To Recovery: Yes Disposition: Recovery Room Overlapping Procedure I was present for: the critical portions of procedure. I was immediately available: during the entire case.
--- NOTE | 2025-05-01 09:30 | Cardioversion ---
Date of Service May 01, 2025 PG Electrical Cardioversion Rp Electrical Cardioversion Report Indication: Paroxysmal atrial fibrillation with rapid ventricular response. Complications: None Estimated blood loss: 0 cc. Anesthesia: Conscious sedation performed by the anesthesia service with propofol. Please see separate report. Procedural summary: Patient was brought to the cardiac catheterization lab holding area in a fasting state. Defibrillator pads were placed in anterior and posterior position. Transesophageal echocardiogram performed demonstrating preserved LV systolic function, no left atrial appendage thrombus. Please see separate report. JAS probe was removed and patient remained adequately sedated. Defibrillator synced to the QRS complex. Single 200 J shock delivered with successful conversion from atrial fibrillation with rapid ventricular response to normal sinus rhythm and sinus bradycardia. Patient tolerated procedure well. No focal neurologic deficit immediately post procedure. Conclusion: Successful transesophageal echo guided direct-current cardioversion from atrial fibrillation with rapid ventricular response to normal sinus rhythm with 200 J. Continue oral anticoagulation with Eliquis for minimum of 4 weeks post cardioversion. Continue beta-han, Toprol-XL 50 mg daily. Nicholas Hamilton DO, [facility] Coding Level of Care Code 78329 CARDIOVERSION, ELECTIVE Additional Codes Electrical Cardioversion Report ([id number])
--- NOTE | 2025-05-01 09:35 | Cardiology Progress Note ---
Date of Service May 01, 2025 Assessment & Plan (1) Paroxysmal atrial fibrillation with RVR: (2) AN on CPAP: Plan 64-year-old male with history of PVI ablation 2022 presents with recurrent atrial fibrillation and rapid ventricular response. No chest discomfort or evidence of acute coronary syndrome. Documented unsuccessful use of "pill in pocket" flecainide 300 mg in the past. Transesophageal echo guided direct- current cardioversion performed successfully earlier today. Remains in sinus rhythm. Natural history, pathophysiology and stroke risk associated with atrial fibrillation discussed. Patient's CHADS2-Vasc score is 0-1 secondary to elevated situational blood pressure and possible hypertension. Recommend continuing Eliquis 5 mg twice daily. Transition metoprolol to tartrate to Toprol-XL 50 mg daily. Discontinue IV diltiazem. Outpatient cardiology follow-up in 2 to 4 weeks. Post-JAS activity restrictions listed below. Nicholas Hamilton DO, [facility] ACTIVITY RECOMMENDATIONS: Resume activities as tolerated with no limitations unless specified. _x_ No lifting over 10 pounds for 24 hours. _x_ Do not engage in vigorous exercise, sexual activity, or sports for 24 hours. _x_ Do not drive or operate any motorized equipment for 24 hours. _x_ You may return to work/school tomorrow. _x_ Nothing to eat or drink until gag reflex returns. _x_ No HOT or WARM liquids for 12 hours. _x_ Avoid "scratchy" foods such as potato chips or pretzels for 24 hours following procedure. SPECIAL CARE: If you experience coughing up or vomiting of blood, contact Dr. Hamilton [phone] Admission and Anticipated Discharge Date Admission Date: April 30, 2025 Subjective 64-year-old male seen and examined post external direct-current cardioversion. Remains in sinus rhythm. Tolerated procedure without complication. Denies chest pain or shortness of breath. Offers no complaints at this time. Review of Systems Review of Systems: All systems reviewed & are unremarkable except as noted in Subjective Physical Exam Constitutional: well nourished; no acute distress Respiratory: no respiratory distress, no labored breathing and no retractions Auscultation: no crackles, no rales, no rhonchi and no wheezes Cardiovascular: Rate/Rhythm: regular rate and regular rhythm Heart Sounds: normal S1 and normal S2; no murmur Vessels: radial pulses present; no JVD and no carotid bruit Extremities: no edema Gastrointestinal (Abdomen): Inspection/Auscultation: abdomen normal to inspection; abdomen not distended Neurologic: CN's II-XI intact bilaterally and moves all extremities; no focal motor deficits Results & Data Vital Signs (Past 12 Hours) Vital Signs Temp Pulse Pulse Pulse Resp BP BP 05/01/25 09:04 36.7 C 54 L 17 100/72 05/01/25 08:35 50 L 16 101/67 05/01/25 08:20 56 L 18 91/64 L 05/01/25 08:05 54 L 18 102/59 L 05/01/25 08:04 89 05/01/25 07:28 36.8 C 113 H 18 134/90 05/01/25 03:22 36.4 C L 69 18 113/69 04/30/25 23:15 36.5 C 63 20 117/82 04/30/25 21:40 84 Pulse Ox O2 Del Method 05/01/25 09:04 98 Room Air 05/01/25 08:35 95 Room Air 05/01/25 08:20 95 Room Air 05/01/25 08:05 98 Room Air 05/01/25 08:04 05/01/25 07:28 95 Room Air 05/01/25 03:22 95 CPAP 04/30/25 23:15 96 CPAP 04/30/25 21:40 Laboratory Results Cardiac Enzymes 04/30/25 Range/Units 08:21 Troponin I High Sens 11.5 (0-20) pg/ml Coagulation 04/30/25 Range/Units 08:21 PT 10.5 (9.0-12.0) Seconds APTT 26 (21-31) Seconds CBC 05/01/25 Range/Units 05:43 WBC 9.92 (4.8-10.8) K/ul RBC 4.96 (4.70-6.10) M/uL Hgb 15.9 (14.0-18.0) g/dl Hct 44.9 (42.0-52.0) % Plt Count 272 (130-400) K/uL Comprehensive Metabolic Panel 05/01/25 Range/Units 05:43 Sodium 140 (136-145) mmol/L Potassium 4.9 (3.5-5.1) mmol/L Chloride 106 (98-107) mmol/L Carbon Dioxide 28 (21-32) mmol/L BUN 19 (6-23) mg/dl Creatinine 1.26 (0.6-1.4) mg/dl Glucose 112 H (70-99(Fasting)) mg/dl Calcium 8.9 (8.6-10.3) mg/dl Intake and Output 04/30/25 05/01/25 05/01/25 22:59 06:59 14:59 Intake Total 200 / 1206.25 Balance 200 / 1206.25 Intake: Oral 200 / 200 Other: Other Intake Source NPO # Unmeasured Voids 2 1 Weight 127.006 kg 131.4 kg Weight Measurement Method Built in Bedscale Standing Scale Diagnostic Findings CBC 05/01/25 Range/Units 05:43 WBC 9.92 (4.8-10.8) K/ul RBC 4.96 (4.70-6.10) M/uL Hgb 15.9 (14.0-18.0) g/dl Hct 44.9 (42.0-52.0) % Plt Count 272 (130-400) K/uL Comprehensive Metabolic Panel 05/01/25 Range/Units 05:43 Sodium 140 (136-145) mmol/L Potassium 4.9 (3.5-5.1) mmol/L Chloride 106 (98-107) mmol/L Carbon Dioxide 28 (21-32) mmol/L BUN 19 (6-23) mg/dl Creatinine 1.26 (0.6-1.4) mg/dl Glucose 112 H (70-99(Fasting)) mg/dl Calcium 8.9 (8.6-10.3) mg/dl Intake and Output 04/30/25 05/01/25 05/01/25 22:59 06:59 14:59 Intake Total 200 / 1206.25 118.75 / 118.75 Balance 200 / 1206.25 118.75 / 118.75 Intake: IV 118.75 / 118.75 dilTIAZem HCL 125 mg In 118.75 / 118.75 Dextrose 5% 100 ml @ 5 MG/HR 5 mls/hr IV .Q24H [facility] Rx#: [id number] Oral 200 / 200 Other: Other Intake Source NPO # Unmeasured Voids 2 1 Weight 127.006 kg 131.4 kg Weight Measurement Method Built in Bedscale Standing Scale PG Care Time/CCT Total # of Minutes Spent Total Time Spent with Patient: Total time spent is greater than 50% in coordination of care (as documented) at patient's floor/unit and/or counseling patient: Coding Level of Care Code 55108 SUB INP/OBS CARE 3/50MIN Diagnoses Paroxysmal atrial fibrillation with RVR I48.0 AN on CPAP G47.33; Z99.89
--- NOTE | 2025-05-01 10:52 | Electrocardiogram Report ---
Test Reason : Blood Pressure : */* mmHG Vent. Rate : 54 BPM Atrial Rate : 54 BPM P-R Int : 142 ms QRS Dur : 94 ms QT Int : 402 ms P-R-T Axes : 56 -40 -12 degrees QTcB Int : 381 ms Sinus bradycardia Left axis deviation Abnormal ECG When compared with ECG of 30-Apr-2025 09:12, Sinus rhythm has replaced Atrial fibrillation Confirmed by Kenan Galeas ([id number]) on 05/01/2025 10:52:24 AM Referred By: REFERRED SELF Confirmed By: Kenan Galeas
[2025-05-01 11:12] VITALS: BP 128/65; RESP 16; TEMP 97.9; O2SAT 96
[2025-05-01 11:52] VITALS: PULSE 51
--- NOTE | 2025-05-01 12:55 | Discharge Summary ---
<Statement entered by Vincent Baires, - 05/01/25 13:18> Seen and examined. s/p successful DCCV today. Cleared for dc by cardio on eliquis and toprol. He will f/u with cardio as OP I spent a total of 15 minutes coordinating, documenting, and providing care for this patient excluding time spent in the performance of separately billed services. This included personally reviewing all current laboratories and imaging studies, medical reconciliation, outpatient chart review and discussion with specialists Discharge Summary Date of Service May 01, 2025 Principal Dx & Hospital Course #1 = Principal Diagnosis (1) Paroxysmal atrial fibrillation with RVR: (2) AN on CPAP: Plan 64 year old male with PMH significant for AN on CPAP and paroxysmal atrial fibrillation who presented to the ED on 04/30/2025 with palpitations and was found to be in RVR. Atrial fibrillation with RVR History of PAF with previous cardioversions and ablation in 2022-> has been off medications since then Presented with palpitations and concern for atrial fibrillation EKG confirmed atrial fibrillation with RVR at rate of 164bpm Received IV metoprolol x2 doses and started on Cardizem drip without significant improvement in HR TTE on 04/30 revealed normal LV systolic function, LVEF 55-60%, mild LVH, mild dilation of LA, no significant valvular pathology s/p successful cardioversion by Dr. Hamilton under JAS on 05/01/2025 Cardiology recommends Eliquis 5mg bid and Metoprolol Succinate 50mg daily Follow up with Cardiology outpatient in 2-4 weeks AN Continue CPAP HS Patient seen in collaboration with Dr. Baires. Please see addendum. Notes For Next Care Provider 64 year old male with known PAF presented in RVR and underwent successful cardioversion. Started on Eliquis and Metoprolol Succinate. Cardiology follow up in 2-4 weeks. 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 Patient has a known history of paroxysmal atrial fibrillation with previous cardioversions. Most recently underwent PVI ablation in 2022. After that he remained in sinus rhythm has been off all medications since then. Patient woke up this morning with feelings palpitations heart racing and irregular heart and could tell that he was in atrial fibrillation. Came to the emergency room where EKG confirmed. In the emergency room received IV metoprolol x 2 with minimal impact on his heart rate. Patient was seen by cardiology in the emergency department. Gave him a dose of oral metoprolol. Goal was to see if his heart rate could be controlled with metoprolol and then consider outpatient cardioversion after he had resumed his Eliquis. He was also given Eliquis here in the emergency department. Unfortunately heart rate did not respond to the oral metoprolol and he remained in rapid ventricular response. He was referred to our service help coordinate care in the hospital and plan for JAS cardioversion tomorrow. In the past patient has done very well and actually converted on a Cardizem drip. That was ordered by cardiology after he did not respond to the oral metoprolol. Time my evaluation the patient is resting comfortably. Does feel some palpitations but no chest pain. No shortness of breath. He states that overall he has been feeling well. He states he had COVID a couple months ago and feels as though he is suffering from some long COVID symptoms with brain fog and altered memory. But he denies any r ecent fevers. No cough or cold symptoms. No nausea no vomiting. No new problems with bowels or bladder. No swelling hands arms legs or feet. Has not had any significant use of alcohol. States his last beer was maybe a month ago. States he tries to stay hydrated as he knows that in the past that has caused his fibrillation. Admission Exam Per Admitting Provider Constitutional: Alert, nontoxic HEENT: Mucous membranes moist. Sclera clear Neck: Soft, no adenopathy Lungs: Clear to auscultation, decreased, no wheezes rales or rhonchi CV: S1-S2, irregular irregular, tachycardic Abdomen: Soft, nontender, nondistended Extremities: No significant edema Musculoskeletal: No significant joint tenderness Neuro: No focal deficits Psych: Cooperative, normal mood Discharge Exam General/Psych: WD/WN, sitting up in bed, NAD, conversing easily Head: normocephalic, atraumatic Eyes: normal inspection, PERRL, conjunctivae pink ENT: external ear and nose normal, oropharynx normal Neck: normal visual inspection, trachea midline Respiratory: normal respiratory effort, lungs clear to auscultation, no wheeze/rales/rhonchi, no accessory muscle use Cardiovascular: bradycardic rate and rhythm, no murmur/rub/gallop Extremities: no cyanosis or clubbing, normal peripheral pulses, no BLE edema Abdomen/GI: normal bowel sounds, soft, nontender Neurologic/MSK: A+Ox3, motor strength 5/5, moves all extremities Skin: no rashes, normal color, warm and dry Updated Medication List Medication Instructions Recorded Confirmed Type apixaban 5 mg tablet (Eliquis) 5 mg PO BID #60 tabs 05/01/25 Rx metoprolol succinate 50 mg 50 mg PO DAILY #30 tabs 05/01/25 Rx tablet,extended release 24 hr Hospital Stay Data Consultations 04/30/25 10:45 Consult Cardiology Stat 04/30/25 12:57 ED Decision to Admit Stat Procedures Performed Operation Date: 05/01/25 07:15 Actual Procedures p Trans-Esophageal Echo - Nicholas Hamilton DO s Echo Color Flow - Nicholas Hamilton DO p Cardioversion w/Anesthesia Sedation - Nicholas Hamilton DO Diagnostic Imagining Performed Chest X-Ray 04/30/25 08:28 XR chest 1V portable CLINICAL HISTORY: arrythmia COMPARISON STUDY: 04/14/2021 FINDINGS: Heart size and pulmonary vasculature are normal. No consolidation or pleural effusion. No pneumothorax. IMPRESSION: No acute findings. ACT 112: Negative or not required by law. Electronically signed by: Jeremy Rodriguez M.D. 04/30/2025 8:42 AM Pending Results Patient Have Any Pending Studies at Discharge: No Discharge Instructions Given to Patient (Per Discharging Provider) You presented to the hospital with atrial fibrillation at a rapid rate. You were given IV metoprolol and started on a Cardizem drip but continued to have high rates. You underwent cardioversion this morning with successful response to normal sinus rhythm. You will need to take Eliquis for at least four weeks and metoprolol succinate. You will need to follow up with Cardiology in 2-4 weeks outpatient. MEDICATION CHANGES: Start Eliquis 5mg by mouth twice daily Start Metoprolol Succinate 50mg by mouth once daily SUMMARY OF TEST RESULTS: Echocardiogram revealed normal left ventricle function, ejection fraction of 55- 60%, and no valve problems Chest x-ray negative PENDING TEST RESULTS: None RECOMMENDATIONS FOR FOLLOW-UP: Please follow up with Cardiology in 2-4 weeks - they will call you to schedule this appointment ACTIVITY RECOMMENDATIONS: Resume activities as tolerated with no limitations unless specified. _x_ No lifting over 10 pounds for 24 hours. _x_ Do not engage in vigorous exercise, sexual activity, or sports for 24 hours. _x_ Do not drive or operate any motorized equipment for 24 hours. _x_ You may return to work/school tomorrow. _x_ Nothing to eat or drink until gag reflex returns. _x_ No HOT or WARM liquids for 12 hours. _x_ Avoid "scratchy" foods such as potato chips or pretzels for 24 hours following procedure. SPECIAL CARE: If you experience coughing up or vomiting of blood, contact Dr. Hamilton [phone] Seek medical attention if you have: * temperature above 101 * chest pain or trouble breathing * abdominal pain, nausea, vomiting * diarrhea, dark stools or bloody stools * any unanswered questions or concerns Call 911 if symptoms are severe. It has been a pleasure taking care of you. Please take care of yourself. If you have any questions regarding your recent hospitalization please contact [facility] and request [facility] Hospital[facility] @ [phone]. Total Time Total Time Spent Total Time Spent (In Minutes): I spent a total of 35 minutes coordinating, documenting and providing care for this patient excluding time spent in the performance of separately billed services or time spent by another provider/QHP.
== END 2025-05-01 12:46 | disposition home or self-care (01) ==
LOC: 2E 08:08 → ED 08:08 → SUATTDRO 14:35 → 2E 16:40